=== PATIENT | female | born 1990 | race Caucasian/White ===

== ENCOUNTER 2016-07-25 06:42 | Inpatient (IN) | payer SELFPAY ==
[2016-07-25 07:11] LABS: ALL NEG? NO
[2016-07-25 07:21] LABS: METHAMPHETAMINES *POSITIVE* (NEGATIVE); OXYCODONE NEG (NEGATIVE)
[2016-07-25 07:29] LABS: LEUKOCYTES/URINE 2+ (NEGATIVE); NITRITE/URINE NEG (NEGATIVE)
--- NOTE | 2016-07-25 07:37 | EDPRACDOC ---
- General Information Chief Complaint: Dyspnea/Resp distress Stated Complaint: CP/ DIFFICULTY BREATHING Time Seen by Provider: 07/25/16 07:28 Information Source: Patient Mode Of Arrival: Car Home Medications: Home Medications Melatonin/Pyridoxine [Melatonin 3 mg Tablet] 1 tab PO QHS 08/03/15 Trazodone HCl 100 mg PO QHS PRN 08/03/15 Cyanocobalamin (Vitamin B-12) [Vitamin B-12] 1,000 mcg PO DAILY 09/03/15 Thiamine HCl [B-1] 50 mg PO DAILY 09/03/15 Carvedilol [Coreg] 3.125 mg PO BID #60 tablet 01/11/16 Ferrous Sulfate [Feosol] 325 mg PO TID 01/14/16 Aspirin (Enteric Coated) [Halfprin] 81 mg PO DAILY #90 tab 01/17/16 Potassium Chloride 20 meq PO DAILY #90 tablet.er 01/17/16 Furosemide 10 mg PO DAILY 07/25/16 Methadone HCl 77 mg PO DAILY 07/25/16 Allergies/Adverse Reactions: Allergies Allergy/AdvReac Type Severity Reaction Status Date / Time metoclopramide HCl Allergy Severe SEIZURE Verified 07/25/16 07:00 [From Reglan] - History of Present Illness HPI: CHEST PRESSURE, N/V, SOB ALL NIGHT. H/O CHF. HAS A VALVE THAT DOES NOT WORK. SUBJECTIVE FEVER LAST NIGHT. USED TO INJECT [place]. REPORTS CLEAN X 9 MONTHS. ED Past Medical History - History Reviewed Yes Nurses notes reviewed and agree except as marked - Patient Medical History Cardiac History: Reports: Congestive Heart Failure, Cardiomyopathy, Valvular Heart Disease (IVDA ENDOCARDITIS) Respiratory History: Reports: Pneumonia GI/ History: Reports: Urinary Tract Infection (h/o) Psychological History: Reports: Depression, Anxiety, Substance Use Disorder (IV NARCOTIC) Systemic History: Reports: Anemia Surgical History: Reports: Tonsillectomy/Adnoidectomy, Other (splenectomy). Denies: Hysterectomy - Family Medical History Reports: Hypertension (maternal grandpa), Diabetes (maternal grandpa), Cancer ( dad ( at age 36 of uncertain what kind of ca)). Denies: Stroke, Cardiac Disorders - Social Medical History Smoking Status: Heavy tobacco smoker (5 or more cigarettes/day or daily pipe/ cigar) Social History: Reports: Substance Use Disorder (IV NARCOTIC) EDM Review of Systems - Review of Systems ROS Negative Except as Marked: Yes All systems reviewed and were negative except as marked Constitutional: Fever Eyes: No Symptoms Reported Respiratory: Shortness of Breath Cardiovascular: Chest Pain Gastrointestinal: Nausea, Vomiting. negative: Pain Genitourinary: No Symptoms Reported Neurological: No Symptoms Reported Musculoskeletal: No Symptoms Reported Integumentary: No Symptoms Reported - Physical Exam Constitutional: Alert (Awake), No apparent distress Oriented to: Time, Person, Place Last recorded Vital Signs: Last Vital Signs Temp 97.7 F 07/25/16 06:55 Pulse 115 07/25/16 06:55 Resp 20 07/25/16 06:55 BP 100/63 07/25/16 06:55 Pulse Ox 93 07/25/16 06:55 Oxygen Pulse Oxygen Saturation 93 O2 Device Room Air Oxygen Flow Rate Fraction of Inspired Oxygen ( FIO2) - HEENT Head: Normal ( normocephalic) Eye Exam: Normal (PERRL, EOMI, Sclera white) Oropharynx: Normal (Pharynx:Moist without exudate,Gums-no swelling) Nose: No Symptoms Reported (septum midline) Neck: Normal (FROM, trachea at midline) - Respiratory/Cardiovascular Respiratory: Other ([place] B/L.) Cardiovascular: Normal (RRR without murmur, gallop or rub) - GI Auscultation: Normal (NABS) Palpation: Normal (Soft,No rebound or guarding, non distended) Tenderness: Non tender Perez's Sign: Negative - Musculoskeletal Back: Normal (Non-Tender) Extremities: Normal (Normal tone, Pulses 2+ No cyanosis or edema, FROM) - Integumentary Skin: Normal, Warm, Dry Lymphatics: Normal (no adenopathy) - Neurologic Memory Impaired: Normal Motor Function: Normal (Normal tone, Pulses 2+ No cyanosis or edema, FROM) Cranial Nerve: Normal (CN II-X11 intact sensation, strength 5/5) Cerebellar: Normal Mood Description: Normal Perception: Normal ED SOB MDM - Results Result Diagrams: 07/25/16 07:50 07/25/16 07:50 Results: Urine Test Neg (NEGATIVE) 07/25/16 07:00 Urine Opiates Screen Neg (NEGATIVE) 07/25/16 07:00 Ur Oxycodone Screen Neg (NEGATIVE) 07/25/16 07:00 Urine Methadone Screen Neg (NEGATIVE) 07/25/16 07:00 Ur Barbiturates Screen Neg (NEGATIVE) 07/25/16 07:00 Ur Tricyclics Screen Neg (NEGATIVE) 07/25/16 07:00 Ur Phencyclidine Scrn Neg (NEGATIVE) 07/25/16 07:00 Ur Amphetamines Screen Neg (NEGATIVE) 07/25/16 07:00 U Methamphetamines Scrn *positive* (NEGATIVE) H 07/25/16 07:00 Urine MDMA Screen *positive* (NEGATIVE) H 07/25/16 07:00 U Benzodiazepines Scrn Neg (NEGATIVE) 07/25/16 07:00 Urine Cocaine Screen Neg (NEGATIVE) 07/25/16 07:00 Ur THC Screen Neg (NEGATIVE) 07/25/16 07:00 Lab Results 07/25/16 07/25/16 07:00 07:00 Urine Test Neg Urine Opiates Screen Neg Ur Oxycodone Screen Neg Urine Methadone Screen Neg Ur Barbiturates Screen Neg Ur Tricyclics Screen Neg Ur Phencyclidine Scrn Neg Ur Amphetamines Screen Neg U Methamphetamines Scrn *positive* H Urine MDMA Screen *positive* H U Benzodiazepines Scrn Neg Urine Cocaine Screen Neg Ur THC Screen Neg - EKG EKG #1 EKG Time: 09:52 -: Yes EKG interpreted by me Rate: bpm: 105 [place]: Normal Rhythm: ST Block: RBBB (INCOMPLETE) Hypertrophy: RVH ST: Nonsp Comments: ABNORMAL EKG - Additional Information Additional Information: 1100: DR SMITH AWARE OF LARGE PERICARDIAL EFFUSION. HE HAS BEEN IN CONTACT WITH [facility] [place]. ECHO ORDERED. PT'S TREND OF BP IS CONSISTENTLY APPROX 100. - Departure Yes I personally saw and evaluated the patient. Disposition: Admit IP To This Hospital Final Diagnosis: Trichomoniasis, Pericardial effusion Pneumonia Qualifiers: Pneumonia type: due to unspecified organism Laterality: left Lung location: lower lobe of lung Qualified Code(s): J18.1 - Lobar pneumonia, unspecified organism UTI (urinary tract infection) Qualifiers: Urinary tract infection type: acute cystitis Hematuria presence: without hematuria Qualified Code(s): N30.00 - Acute cystitis without hematuria Referrals: None,No Provider [Primary Care Provider] - One Week Decision to Admit Time: 09:43 Decision to admit date: 07/25/16 Decision to admit: from ED - Physician Consulted Hospitalist Time Called: 09:43 Provider Called: aDnelle Denny Time Fishing [employer] W[employer] Returned Call: 09:43
[2016-07-25 07:44] LABS: WBC/URINE 20-30 (0-5)
[2016-07-25 07:46] LABS: URINE OCCULT BLOOD NEG (NEG/TRACE)
--- NOTE | 2016-07-25 08:01 | DIRPT ---
CLINICAL DATA: Shortness of breath and cough. Chest pain EXAM: CHEST 2 VIEW COMPARISON: January 14, 2016 and January 15, 2016 FINDINGS: There is focal airspace consolidation in the posterior left base region. There is mild atelectatic change in the left mid lung and right base regions. Generalized enlargement of the cardiac silhouette is stable; the configuration raises question of pericardial effusion. No adenopathy. No bone lesions. IMPRESSION: Posterior left base airspace consolidation consistent with pneumonia. Patchy atelectasis bilaterally. Stable enlargement of the cardiac silhouette. The configuration of the cardiac silhouette raises question of pericardial effusion. Electronically Signed By: Camron Parsons III, M.D. On: 07/25/2016 07:59
[2016-07-25 08:05] LABS: AUTOMATED BASOPHIL 0.1 % (0-2); AUTOMATED EOSINOPHIL 0.2 % (0-5); AUTOMATED LYMPH 26.5 % (17-44); AUTOMATED MONOCYTE 11.2 % (3-10); MPV 10.7 fL (7.4-10.4)
[2016-07-25 08:14] LABS: BLOOD UREA NITROGEN 12 MG/DL (7-17); CALCIUM 9.5 MG/DL (8.4-10.2); CALCULATED OSMOLALITY 267 MOs/Kg (270-290); CHLORIDE 101 mEq/L (98-107); CPK (TOTAL ONLY) 20 IU/L (30-134); GLUCOSE 108 MG/DL (70-99); SODIUM LEVEL 138 mEq/L (137-146)
[2016-07-25] MEDS ORDERED: ONDANSETRON HCL 4 MG/2 ML VIAL IV ONE (08:20)
[2016-07-25] MEDS ORDERED: METRONIDAZOLE 500 MG TAB PO ONE (08:22)
[2016-07-25] MEDS ORDERED: CEFTRIAXONE 1 GM in D5W 100 ML IV ONE (08:23)
[2016-07-25] MEDS ORDERED: AZITHROMYCIN 500 MG in D5W 250 ML IV ONE (08:24)
[2016-07-25] MEDS ORDERED: ALBUTEROL 0.083% 3 ML NEB NEB ONE (08:33)
[2016-07-25 08:41] LABS: CRP-QUANTITATIVE 21.6 mg/L (<10.0)
[2016-07-25 08:48] LABS: ALLEN'S TEST PASS
[2016-07-25 08:50] LABS: ABG Draw Site RRA
[2016-07-25] MEDS ORDERED: Pharmacy Review for Metformin - IV Contrast Given SCH (10:00)
--- NOTE | 2016-07-25 10:22 | DIRPT ---
CLINICAL DATA: Hypoxic EXAM: CT ANGIOGRAPHY CHEST WITH CONTRAST TECHNIQUE: Multidetector CT imaging of the chest was performed using the standard protocol during bolus administration of intravenous contrast. Multiplanar CT image reconstructions and MIPs were obtained to evaluate the vascular anatomy. CONTRAST: 80 cc Isovue 370 COMPARISON: 11/14/2012 FINDINGS: There are no filling defects in the pulmonary arterial tree to suggest acute pulmonary thromboembolism. Large pericardial effusion. Small mediastinal nodes. Small bilateral axillary nodes. The right ventricle is severely dilated. The right atrium is dilated. No pneumothorax or pleural effusion. Patchy bibasilar atelectasis versus airspace disease left greater than right. No acute rib fracture. Mild T3 compression deformity of indeterminate age. Prominence of the left adrenal gland without focal nodule. Review of the MIP images confirms the above findings. IMPRESSION: No evidence of acute pulmonary thromboembolism Large pericardial effusion Dilatation of the right atrium and right ventricle compatible with right heart dysfunction. This may be related to the pericardial effusion. Mild T3 compression of indeterminate age. Bibasilar atelectasis versus airspace disease. Electronically Signed By: Mathew Corey M.D. On: 07/25/2016 10:19
[2016-07-25] MEDS ORDERED: Albuterol/Ipratropium Neb 3 ML NEB NEB PRN (10:55)
--- NOTE | 2016-07-25 12:01 | HISTPHYS ---
- Chief Complaint Shortness of breath - History of Present Illness This is a 25-year-old IV drug abuser with a history of hepatitis-C, severe pulmonary hypertension with tricuspid regurgitation and medication noncompliance was being admitted to the hospital this morning due to shortness of breath. The patient tells me that she has not taken her medications for the past few months, mainly due to lack of insurance. She says that she has several pills of her beta-eber and Lasix that she keeps with her in case she gets sick and confused, but does not take the medication on a regular basis. She started to feel more short of breath in the last 2 or 3 days, denies any fevers, chills, or chest pain. She has had some nausea without vomiting. Denies any diarrhea, or abdominal pain. She has been taking care of and seen by specialists while an inpatient at [facility], but was told to follow up with their Cardiology and hepatology teams once she is clean so that they can start to treat her heart failure, valvular disease and other medical problems. Unfortunately, she has not stayed clean and has not followed up with them. She claims that she has not used Opana for the last 5 months, but today her urine demonstrates methamphetamines. She has a known history of pericardial effusion. She is hypotensive this morning, but she says that this is not unusual for even when she is in her normal state of health. Hospitalist group was consulted for further evaluation and admission to the hospital due to pneumonia seen on chest x-ray, as well as her hypoxia and pericardial effusion. - Medical History Cardiac History: Reports: Congestive Heart Failure, Cardiomyopathy, Valvular Heart Disease (IVDA ENDOCARDITIS) Respiratory History: Reports: Pneumonia GI/ History: Reports: Urinary Tract Infection (h/o) Systemic History: Reports: Anemia Psychological History: Reports: Depression, Anxiety, Substance Use Disorder (IV NARCOTIC) - Surgical History Reports: Tonsillectomy/Adnoidectomy, Other (splenectomy). Denies: Hysterectomy - Medictions/Allergies Allergies metoclopramide HCl [From Reglan] Allergy (Severe, Verified 07/25/16 07:00) SEIZURE Home Medications Melatonin/Pyridoxine [Melatonin 3 mg Tablet] 1 tab PO QHS 08/03/15 Trazodone HCl 100 mg PO QHS PRN 08/03/15 Cyanocobalamin (Vitamin B-12) [Vitamin B-12] 1,000 mcg PO DAILY 09/03/15 Thiamine HCl [B-1] 50 mg PO DAILY 09/03/15 Carvedilol [Coreg] 3.125 mg PO BID #60 tablet 01/11/16 Ferrous Sulfate [Feosol] 325 mg PO TID 01/14/16 Aspirin (Enteric Coated) [Halfprin] 81 mg PO DAILY #90 tab 01/17/16 Potassium Chloride 20 meq PO DAILY #90 tablet.er 01/17/16 Furosemide 10 mg PO DAILY 07/25/16 Methadone HCl 77 mg PO DAILY 07/25/16 - Family History Reports: Hypertension (maternal grandpa), Diabetes (maternal grandpa), Cancer ( dad ( at age 36 of uncertain what kind of ca)). Denies: Stroke, Cardiac Disorders - Social History Smoking Status: Heavy tobacco smoker (5 or more cigarettes/day or daily pipe/ cigar) Social History: Reports: Substance Use Disorder (IV NARCOTIC) - Review of Systems Yes All systems reviewed and were negative except as marked (And as mentioned in the history of present illness above.) - Physical Exam Vital Signs: Initial Vitals Temperature 97.7 F 07/25/16 06:55 Pulse Rate 115 07/25/16 06:55 Respiratory Rate 20 07/25/16 06:55 Blood Pressure 100/63 07/25/16 06:55 Pulse Oxygen Saturation 93 07/25/16 06:55 Constitutional: No apparent distress, Alert Oriented to: Time, Person, Place Exam: Thin woman appearing at least 10 years older than her stated age. She is not a very good historian, her boyfriend at the bedside provides most of the history and explanation. - HEENT Head: Normal (normocephalic,atraumatic, trachea midline) Eye: Normal (EOMI, Sclera white) Oropharynx: Normal (moist) Nose: No Symptoms Reported (without discharge or bleeding) Respiratory: Diminished, Rales, Rhonchi. negative: Retractions, Stridor, Tachypnea, Wheezes Cardiovascular: Tachycardia - GI Palpation: Normal (soft, non distended and nontender) - Musculoskeletal Extremities: Normal (normal tone, no cyanosis or edema) - Integumentary Skin: Normal (no rashes or lesions) - Focused CV Perfusion Exam Vital Signs: Last Vital Signs Temp 97.7 F 07/25/16 06:55 Pulse 105 07/25/16 11:32 Resp 16 07/25/16 11:32 BP 88/55 L 07/25/16 11:32 Pulse Ox 95 07/25/16 11:32 - Lab Results Laboratory Tests 07/25/16 07/25/16 07/25/16 07:00 07:50 07:50 WBC 16.6 H Hgb 14.5 Hct 44.1 Plt Count 176 pH pCO2 pO2 Potassium 4.9 BUN 12 Creatinine 0.50 L AST 158 H ALT 175 H Alkaline Phosphatase 561 H Total Creatine Kinase 20 L Troponin I < 0.01 C-Reactive Prot, Quant 21.6 H [id number] Pept 5630 H Ur Oxycodone Screen Neg U Methamphetamines Scrn *positive* H Urine MDMA Screen *positive* H 07/25/16 08:45 WBC Hgb Hct Plt Count pH 7.400 pCO2 46.0 H pO2 54.0 L Potassium BUN Creatinine AST ALT Alkaline Phosphatase Total Creatine Kinase Troponin I C-Reactive Prot, Quant [id number] Pept Ur Oxycodone Screen U Methamphetamines Scrn Urine MDMA Screen - Diagnostic Findings CT of the chest: IMPRESSION: No evidence of acute pulmonary thromboembolism Large pericardial effusion Dilatation of the right atrium and right ventricle compatible with right heart dysfunction. This may be related to the pericardial effusion. Mild T3 compression of indeterminate age. Bibasilar atelectasis versus airspace disease. - Assessment (1) Pneumonia J18.9 - PNEUMONIA, UNSPECIFIED ORGANISM Acute Qualifiers: Pneumonia type: due to unspecified organism Aspiration pneumonia type: A Laterality: left Lung location: lower lobe of lung Qualified Code(s): J18.1 - Lobar pneumonia, unspecified organism This is a community-acquired pneumonia, but will cover broadly including MRSA due to the patient's history of IV drug abuse. Treat empirically today with IV Zosyn and vancomycin. Will obtain sputum and blood cultures. Repeat chest x- ray in the morning. Respiratory therapy has been consulted, will keep supplemental oxygen will be provided as needed, as well as incentive spirometry and flutter valve. (2) Pericardial effusion I31.3 - PERICARDIAL EFFUSION (NONINFLAMMATORY) Acute Patient is a known history of pericardial effusion, likely chronic. I discussed the situation with Dr. Mandeep Sherman of Cardiology, who will see the patient in consultation. This is look interpreted as a large effusion on CT scan this afternoon, however these are often over called given the access on which CT scan is evaluating the pericardial space. Stat echocardiogram will be performed, interpreted by Dr. Sherman. We feel that this is less likely to be an acute situation which is causing any heart strain, tamponade or hemodynamic instability. More likely to be a chronic effusion related to her heart failure. (3) CHF, acute on chronic I50.9 - HEART FAILURE, UNSPECIFIED Acute Qualifiers: Congestive heart failure type: unspecified congestive heart failure type Qualified Code(s): I50.9 - Heart failure, unspecified Patient does carry a diagnosis of CHF, it is not clear to me that she is in heart failure. Her BNP is elevated, but not as much as it was back in January. She does have severe pulmonary hypertension and tricuspid regurgitation. Will continue her on the beta-eber and oral diuretic she was supposed to be on at home, appreciate Cardiology input regarding this issue as well. (4) Respiratory insufficiency R06.89 - OTHER ABNORMALITIES OF BREATHING Acute Likely due to combination of her CHF, pulmonary hypertension, and community-acquired pneumonia. Treating as above. (5) Transaminitis R74.0 - NONSPEC ELEV OF LEVELS OF TRANSAMNS & LACTIC ACID DEHYDRGNSE Acute Patient with transaminitis, she does have a history of chronic hepatitis-C infection. Currently not on treatment due to her medication noncompliance and IV drug use. (6) Hepatitis C B19.20 - UNSPECIFIED VIRAL HEPATITIS C WITHOUT HEPATIC COMA Chronic Qualifiers: Viral hepatitis chronicity: chronic Hepatic coma status: H See transaminitis above. (7) Intravenous drug abuse F19.10 - OTHER PSYCHOACTIVE SUBSTANCE ABUSE, UNCOMPLICATED Chronic Patient claims to be clean for the last several months, but she does have methamphetamines in her system today. I informed her in no uncertain terms that I am worried about her life expectancy if she continues to use. (8) Pulmonary arterial hypertension I27.2 - OTHER SECONDARY PULMONARY HYPERTENSION Chronic Severe pulmonary hypertension with PASP of 72 mm Hg. Patient was advised to follow up with Pulmonary hypertension Clinic at [facility]. Continue Lasix and other treatments as above. - Plan In summary this patient is acutely and critically ill. The patient requires treatment of vital organ failure and measures to prevent further life- threatening deterioration of the above conditions. I personally reviewed and ordered lab testing, as well as imaging. I reviewed old medical records from previous hospitalizations as available, and spent the time mentioned below in critical care of this patient including counseling and coordination of care. Case Care Discussed with: Patient, Family, Nursing Staff Total Time: 95 Critical Care: Yes Couseling Time (>50% in counseling/coordination): Yes
--- NOTE | 2016-07-25 12:30 | PCM.CARDCO ---
Consultation Date: 07/25/16 Requesting Physician: Marv Mendez Clinical Psychologist Private Practice: [facility] Consult Reason: Other - History of Present Illness She is a 25-year-old woman with a history of IV drug abuse severe pulmonary artery hypertension right ventricular dilation and dysfunction severe tricuspid regurgitation and chronic pericardial effusion. She is evaluated 1 year ago at [facility] according to her significant other who said she was advised to have valve replacement but has had no follow-up. She presents today which shortness of breath CT of the chest suggested large pericardial effusion. Echo at the bedside shows an effusion that is predominantly posteriorly I would call at moderate and does not have markers of pericardial tamponade. On CT the fluid is not transit date and appears to be chronic I could not define if the pericardium was thickened. There is no stranding. She has findings both right ventricular pressure and volume overload dilated hypokinetic right ventricle severe tricuspid regurgitation and severe pulmonary artery hypertension. She relates shortness of breath even with ADLs and marked exercise intolerance. She has not had syncope. Chief Complaint: Pericardial effusion - Past Medical and Surgical History Cardiac History: Reports: Congestive Heart Failure, Cardiomyopathy, Valvular Heart Disease (IVDA ENDOCARDITIS) Respiratory History: Reports: Pneumonia GI/ History: Reports: Urinary Tract Infection (h/o) Systemic History: Reports: Anemia Psychological History: Reports: Depression, Anxiety, Substance Use Disorder (IV NARCOTIC) Past Surgical History: Reports: Tonsillectomy/Adnoidectomy, Other (splenectomy) . Denies: Hysterectomy Allergies metoclopramide HCl [From Reglan] Allergy (Severe, Verified 07/25/16 07:00) SEIZURE Home Medications Melatonin/Pyridoxine [Melatonin 3 mg Tablet] 1 tab PO QHS 08/03/15 Trazodone HCl 100 mg PO QHS PRN 08/03/15 Cyanocobalamin (Vitamin B-12) [Vitamin B-12] 1,000 mcg PO DAILY 09/03/15 Thiamine HCl [B-1] 50 mg PO DAILY 09/03/15 Carvedilol [Coreg] 3.125 mg PO BID #60 tablet 01/11/16 Ferrous Sulfate [Feosol] 325 mg PO TID 01/14/16 Aspirin (Enteric Coated) [Halfprin] 81 mg PO DAILY #90 tab 01/17/16 Potassium Chloride 20 meq PO DAILY #90 tablet.er 01/17/16 Furosemide 10 mg PO DAILY 07/25/16 Methadone HCl 77 mg PO DAILY 07/25/16 - Social History Travel Outside of [place] in the Last 3 Months?: No Smoking Status: Heavy tobacco smoker (5 or more cigarettes/day or daily pipe/ cigar) Social History: Reports: Substance Use Disorder (IV NARCOTIC) - Family History Reports: Hypertension (maternal grandpa), Diabetes (maternal grandpa), Cancer ( dad ( at age 36 of uncertain what kind of ca)). Denies: Stroke, Cardiac Disorders - Review of Systems Constitutional: Fever, Weakness - Respiratory Shortness of Breath - Physical Exam Constitutional: No apparent distress, Alert, Other (Small stature she looks chronically ill she is tachypneic tachycardic and pain) Oriented to: Time, Person, Place Exam: Last Vital Signs Temp 97.7 F 07/25/16 06:55 Pulse 106 07/25/16 12:13 Resp 14 07/25/16 12:13 BP 105/63 07/25/16 12:13 Pulse Ox 95 07/25/16 12:13 Intake & Output 07/24/16 07/25/16 07/25/16 23:59 07:59 15:59 Intake Total 350 Balance 350 - HEENT Head: Normal (Marked neck vein distention with a patent jugular reflux to the neck veins are pulsatile. No bruit or thyromegaly) Eye: Normal (EOMI, Sclera white) Oropharynx: Normal (moist) Nose: No Symptoms Reported (without discharge or bleeding) - Respiratory/Cardiovascular Respiratory: Diminished, Rales, Rhonchi. negative: Retractions, Stridor, Tachypnea, Wheezes Cardiovascular: Systolic murmur (Regular rhythm P2 is accentuated grade 2-3 of 6 holosystolic murmur tricuspid regurgitation there is no respiratory fluctuation) - GI Palpation: Normal (soft, non distended and nontender) - Musculoskeletal Extremities: Normal (normal tone, no cyanosis or edema), Femoral Pulse, Pedal Pulse, Radial Pulse. negative: Calf Tenderness, Clubbing, Cyanosis, Edema, Pedal Edema - Integumentary Skin: Normal (no rashes or lesions) - Neurologic Memory Impaired: Normal Cerebellar: Normal Mood Description: Normal Perception: Normal - Lab Results Laboratory Tests 07/25/16 07/25/16 07/25/16 07:00 07:00 07:50 WBC Hgb Plt Count Absolute Neuts (auto) Potassium 4.9 Estimated GFR (MDRD) > 60 Troponin I < 0.01 Bzd-D-Ldkwitzsemv Pept 5630 H Ur Leukocyte Esterase 2+ H Urine WBC 20-30 H Urine Bacteria 2+ H U Methamphetamines Scrn *positive* H Urine MDMA Screen *positive* H 07/25/16 07:50 WBC 16.6 H Hgb 14.5 Plt Count 176 Absolute Neuts (auto) 10.29 H Potassium Estimated GFR (MDRD) Troponin I Jqa-Y-Cincjrgktzv Pept Ur Leukocyte Esterase Urine WBC Urine Bacteria U Methamphetamines Scrn Urine MDMA Screen - Assessment/Plan (1) Pericardial effusion I31.3 - PERICARDIAL EFFUSION (NONINFLAMMATORY) Chronic Present on Admission: Yes Comment: Her pericardial effusion is chronic as evidence by the Hounsfield units on CT scan, clinically she does not have tamponade I do not feel that it severe at this time I would not advise any urgent interventions for percutaneous or surgical drainage. Ideally she should have a pericardial window performed however her continues substance abuse and noncompliance have interfered with her care and she has had no follow-up after seeing CT surgery year ago. (2) Tricuspid regurgitation I07.1 - RHEUMATIC TRICUSPID INSUFFICIENCY Chronic Present on Admission: Yes nonrheumatic I36.1 - Nonrheumatic tricuspid (valve) insufficiency Comment: Severe, clinically I suspect is related to IV drug abuse either sequela of endocarditis or secondary to right heart failure due to her severe pulmonary hypertension. She could clinically be considered for intervention either even percutaneous however she would be at high risk of endocarditis with her ongoing substance abuse. (3) Enlarged RV (right ventricle) I51.7 - CARDIOMEGALY Chronic Present on Admission: Yes Comment: She has evidence of both right ventricular pressure and volume overload as well as moderate to severe RV dysfunction which is chronic. Clinically she is compensated at this time. With her blood pressure being low I would not diurese her. (4) Pulmonary arterial hypertension I27.2 - OTHER SECONDARY PULMONARY HYPERTENSION Chronic Present on Admission: Yes Comment: Severe placing her at high risk of complications including intractable right heart failure. Case Care Discussed with: Patient
[2016-07-25] MEDS: PIPERACILLIN AND TAZOBACTAM 4.5 GM in D5W 100 ML IV SCH ×2 (12:35→17:20)
--- NOTE | 2016-07-25 13:20 | CAPUECHO ---
INDICATION: LARGE PERICARDIAL EFFUSION HEIGHT: 147.3 cm (4 ft 10.0 in) WEIGHT: 49.9 kg (110.0 lbs) BP: 86/54 BSA: 1.173332 m MEASUREMENTS 2D RVIDd: 5.9* cm LVOT Diam: 1.7 cm EF Biplane: 66.29 % LAESV MOD A4C: 9.3 ml LAESV MOD A2C: 32.2 ml LAESV Index (A-L): 14.24 ml/m M-MODE IVSd: 0.9 cm LVIDd: 3.3 cm LVPWd: 0.8 cm LVIDs: 2.1 cm EF(Teich): 70 % Ao Diam: 2.8 cm LA Diam: 4.3 cm AV Cusp: 1.3 cm DOPPLER MV E Krish: 0.72 m/s MV A Krish: 0.75 m/s MV PHT: 23.16 ms MVA By PHT: 9.50 cm LVOT Vmax: 0.83 m/s AV Vmax: 0.99 m/s HOMER Vmax, Pt: 2.01 cm TR Vmax: 3.34 m/s TR maxP mmHg RVSP: 90.38 mmHg FINDINGS ------- Procedure:2D images, m-mode, color and spectral Doppler were obtained and reviewed. ECG rhythm:Sinus rhythm. Study quality:This was a technically adequate study. Left Ventricle:The left ventricular size is normal. Left ventricular wall thickness is normal. T here is normal global left ventricular contractility. Overall left ventricular systolic function i s normal with, an EF between 60 - 65 %. Overall left ventricular systolic function is normal with, an EF between 60 - 70 %. There is septal flattening in diastole and systole which is consistent w ith right ventricular pressure and volume overload. The diastolic filling pattern indicates impair ed relaxation. Right Ventricle:The right ventricle is severely enlarged. The right ventricular systolic function is severely impaired. Left Atrium:The left atrium is mildly dilated. Right Atrium:The right atrium is normal in size and function. The right atrium is mildly enlarged. Aortic Valve:The aortic valve is trileaflet and appears structurally normal. Mitral Valve:Normal appearing mitral valve. No mitral regurgitation. Tricuspid Valve:The tricuspid valve appears structurally normal. Severe tricuspid regurgitation pr esent. There is no evidence of pulmonary hypertension. Pulmonic Valve:The pulmonic valve was not well visualized. Moderate pulmonic regurgitation. Aorta:The aortic root, ascending aorta and aortic arch appear normal. IVC:The inferior vena cava is mildly dilated. Pericardium:The pericardium appears to be thickened. there is a small to moderate anterior and mod erate posterior pericardial effusion CONCLUSIONS 1. There is normal global left ventricular contractility. 2. Overall left ventricular systolic function is normal with, an EF between 60 - 70 %. 3. There is septal flattening in diastole and systole which is consistent with right ventricular pre ssure and volume overload. 4. The right ventricle is severely enlarged. 5. The right ventricular systolic function is severely impaired. 6. The left atrium is mildly dilated. 7. The right atrium is mildly enlarged. 8. Severe tricuspid regurgitation present. 9. There is no evidence of pulmonary hypertension. 10. Moderate pulmonic regurgitation. 11. there is a small to moderate anterior and moderate posterior pericardial effusion Electronically Signed By: Mandeep Sherman MD, FACC Electronically Signed On: 13:15:19
[2016-07-25] MEDS: IBUPROFEN 600 MG TAB PO PRN ×2 (14:32→22:13)
[2016-07-25] MEDS: POTASSIUM CHLORIDE 20 MEQ TAB PO SCH (14:33)
[2016-07-25] MEDS ORDERED: Vaccine Screening Complete SCH (16:00)
[2016-07-25] MEDS: ENOXAPARIN 40 MG/0.4 ML PFS SQ SCH (17:20)
[2016-07-25] MEDS ORDERED: PYRIDOXINE PO SCH (21:00)
[2016-07-25] MEDS ORDERED: MELATONIN PO SCH (21:00)
[2016-07-25] MEDS: TRAZODONE 100 MG TAB PO PRN (22:13)
[2016-07-26] MEDS: PIPERACILLIN AND TAZOBACTAM 4.5 GM in D5W 100 ML IV SCH ×5 (00:50→23:45)
[2016-07-26] MEDS ORDERED: NS 500 ML IV ONE (01:17)
[2016-07-26] MEDS ORDERED: ACETAMINOPHEN 325 MG SUPP PR PRN (01:18)
[2016-07-26] MEDS ORDERED: BISACODYL 5 MG TAB PO PRN (01:18)
[2016-07-26] MEDS ORDERED: GUAIFEN 100 MG-DEXTROMETH 10 MG PER 5 ML PO PRN (01:18)
[2016-07-26] MEDS ORDERED: SIMETHICONE 80 MG TAB PO PRN (01:18)
[2016-07-26] MEDS ORDERED: BENZONATATE 100 MG PERLES PO PRN (01:18)
[2016-07-26] MEDS ORDERED: SENNA CONCENTRATE TAB PO PRN (01:18)
[2016-07-26 03:12] LABS: MPV 10.1 fL (7.4-10.4)
[2016-07-26 03:28] LABS: BLOOD UREA NITROGEN 15 MG/DL (7-17); CALC CORRECTED 9.3 MG/DL (8.4-10.2); CALCIUM 8.4 MG/DL (8.4-10.2); CALCULATED OSMOLALITY 260 MOs/Kg (270-290); CHLORIDE 97 mEq/L (98-107); GLUCOSE 115 MG/DL (70-99); SODIUM LEVEL 134 mEq/L (137-146); TOTAL PROTEIN 6.3 G/DL (6.3-8.2)
--- NOTE | 2016-07-26 07:56 | PCM.CARD ---
- Subjective Reason for visit: For chronic pericardial effusion Current Assessment: No New Symptoms (She feels improved today without shortness of breath cough for chest discomfort). negative: Cough, Chest Pain, Nausea, Palpitations, Sputum, Vomiting Vital Signs: Last Vital Signs Temp 97.6 F 07/26/16 07:39 Pulse 100 07/26/16 07:39 Resp 18 07/26/16 07:39 BP 85/54 L 07/26/16 07:39 Pulse Ox 93 07/26/16 07:39 Vital Signs Temp 97.6 F 07/26/16 07:39 Pulse 100 07/26/16 07:39 Resp 18 07/26/16 07:39 BP 85/54 L 07/26/16 07:39 Pulse Ox 93 07/26/16 07:39 Intake & Output 07/24/16 07/25/16 07/26/16 23:59 23:59 23:59 Intake Total 915 1515 Output Total 800 500 Balance 115 1015 Patient's weight 111 lb 11.2 oz 112 lb 6 oz Intake: IV Fluids 675 1155 Left Outer Forearm 325 1155 Rocephin 1 gm In D5w 100 100 ml @ 200 mls/hr IV NOW ONE Rx#:[id number] Zithromax 500 mg In D5w 250 250 ml @ 250 mls/hr IV ONCE ONE Rx#:[id number] Zosyn 4.5 gm In D5w 100 0 ml @ 200 mls/hr IV Q6H KAMALJIT Rx#:[id number] Oral 240 360 Output: Urine 800 500 Other: Elimination Method Bedside Commode Bedside Commode Urine Color Yellow Yellow Dark Dark Wt Change in KG 0.771 kg gained 0.306 kg gained Weight Change from 1.7 lb(s) gained 10.8 oz gained Previous Weight Weight (Calculated 50.666 50.972 Kilograms) Respiratory: Diminished. negative: Rales, Wheezes Jugular Vein Distention: Moderate Pulse Rhythm: Regular EKG Rhythm: Sinus Tachycardia EKG Ectopy: negative: Runs >10 beats Heart Sounds: Murmur (2-3 of 6 TR left sternal border She has no edema today), Distant. negative: S1 & S2 (Accentuated P2) Lab/DI Results Reviewed: Laboratory Tests 07/25/16 07/26/16 07/26/16 08:45 03:00 03:00 WBC 16.9 H Hgb 11.8 L D pH 7.400 pCO2 46.0 H pO2 54.0 L Potassium 3.7 Estimated GFR (MDRD) > 60 AST 98 H ALT 128 H Alkaline Phosphatase 396 H - Assessment/Plan (1) Pericardial effusion Chronic I31.3 - PERICARDIAL EFFUSION (NONINFLAMMATORY) Present on Admission: Yes Comment/Plan: I have asked her to see me in the office in follow-up after discharge, if compliant she should be referred to [facility] for [facility] artery hypertension tricuspid regurgitation and a pericardial effusion with consideration of percutaneous or surgical drainage and window. At This time if she continues to be noncompliant and substance abuse I would not recommend these procedures. (2) Tricuspid regurgitation Chronic I07.1 - RHEUMATIC TRICUSPID INSUFFICIENCY Present on Admission: Yes nonrheumatic I36.1 - Nonrheumatic tricuspid (valve) insufficiency Comment/Plan: See above, requires evaluation treatment of pulmonary hypertension and potentially is a candidate for tricuspid valve intervention either annuloplasty ring her percutaneous tricuspid valve replacement if she does not respond to medical treatment (3) Enlarged RV (right ventricle) Chronic I51.7 - CARDIOMEGALY Present on Admission: Yes Comment/Plan: Secondary to pulmonary hypertension severe (4) Pulmonary arterial hypertension Chronic I27.2 - OTHER SECONDARY PULMONARY HYPERTENSION Present on Admission: Yes Comment/Plan: Severe in the setting of IV drug abuse, I will request records from [facility] and I am somewhat surprised that she was not offered medical treatment. If compliant she needs refer to multi disciplinary program for pulmonary hypertension and her right heart dysfunction and valvular regurgitation. I would not restart a beta-eber in the absence of atrial arrhythmias
[2016-07-26 08:18] LABS: MDMA* NEG (NEGATIVE)
[2016-07-26] MEDS: METHADONE 10 MG TAB PO SCH (08:52)
[2016-07-26] MEDS ORDERED: FUROSEMIDE 20 MG TAB PO SCH (09:00)
[2016-07-26] MEDS ORDERED: Non-Formulary Medication ITEM (Potassium Chloride [Potassium Chloride] 20 MEQ) PO SCH (09:00)
[2016-07-26] MEDS ORDERED: METHADONE HCL PO SCH (09:00)
--- NOTE | 2016-07-26 09:17 | GENMEDPROG ---
Chief Complaint: Shortness of breath Subjective Note: Resting comfortably this morning. Denies chest pain or shortness of breath. Notes Reviewed: Yes Events from last night noted and discussed with Clinical Staff Current Medication List: Reviewed Currently: Reports: Cough, Wheezing, ALBRIGHT, SOB DVT Prophylaxis: Yes - Physical Examination Vital Signs and I&O: Last Vital Signs Temp 97.6 F 07/26/16 07:39 Pulse 100 07/26/16 07:39 Resp 18 07/26/16 07:39 BP 85/54 L 07/26/16 07:39 Pulse Ox 93 07/26/16 07:39 Oxygen Pulse Oxygen Saturation 93 O2 Device Nasal Cannula Oxygen Flow Rate 2 Fraction of Inspired Oxygen ( FIO2) Intake & Output 07/24/16 07/25/16 07/26/16 07/27/16 06:59 06:59 06:59 06:59 Intake Total 2430 Output Total 1300 300 Balance 1130 -300 Patient's weight 50.972 kg General: Alert, Oriented x3, Cooperative, Mild distress HEENT: EOMI (Sclera white) Neck: Normal Trachea alignment, Normal inspection Respiratory: Diminished, Rales, Rhonchi. negative: Retractions, Stridor, Tachypnea, Wheezes Cardiovascular: Regular rate, No Gallops,Rubs/Murmurs GI: Normal bowel sounds, Soft, Non tender (non distended) Extremities/Musculoskeletal: Other (Normal Tone). negative: Edema, Cyanosis Skin: No rashes, No significant lesion Psych/Mental Status: Anxious Lab/DI/Studies Reviewed: Laboratory Tests 07/25/16 07/26/16 07/26/16 07:50 03:00 03:00 WBC 16.6 H 16.9 H Hgb 11.8 L D Potassium 3.7 BUN 15 Creatinine 0.60 - Assessment (1) Pneumonia Acute J18.9 - PNEUMONIA, UNSPECIFIED ORGANISM Qualifiers: Pneumonia type: due to unspecified organism Aspiration pneumonia type: A Laterality: left Lung location: lower lobe of lung Qualified Code(s): J18.1 - Lobar pneumonia, unspecified organism Comment/Plan: This is a community-acquired pneumonia, but will cover broadly including MRSA due to the patient's history of IV drug abuse. Treat empirically today with IV Zosyn and vancomycin. Will obtain sputum and blood cultures. Respiratory therapy has been consulted, will keep supplemental oxygen will be provided as needed, as well as incentive spirometry and flutter valve. (2) Pericardial effusion Chronic I31.3 - PERICARDIAL EFFUSION (NONINFLAMMATORY) Comment/Plan: Patient has a known history of pericardial effusion, likely chronic. I discussed the situation with Dr. Mandeep Sherman of Cardiology, who was kind enough to see the patient in consultation. Patient had a stat echocardiogram yesterday in the emergency department interpreted by Dr. Sherman, it is moderate in size, very chronic appearing. Etiology is unclear. No evidence of tamponade. In the long-term, she may benefit from pericardial window. (3) CHF, acute on chronic Acute I50.9 - HEART FAILURE, UNSPECIFIED Qualifiers: Congestive heart failure type: unspecified congestive heart failure type Qualified Code(s): I50.9 - Heart failure, unspecified Comment/Plan: Patient does carry a diagnosis of CHF, it is not clear to me that she is in heart failure. Her BNP is elevated, but not as much as it was back in January. She does have severe pulmonary hypertension and tricuspid regurgitation. Beta-eber oral diuretic due to relative hypotension. (4) Respiratory insufficiency Acute R06.89 - OTHER ABNORMALITIES OF BREATHING Comment/Plan: Likely due to combination of her CHF, pulmonary hypertension, and community-acquired pneumonia. Treating as above. (5) Transaminitis Acute R74.0 - NONSPEC ELEV OF LEVELS OF TRANSAMNS & LACTIC ACID DEHYDRGNSE Comment/Plan: Patient with transaminitis, she does have a history of chronic hepatitis-C infection. Currently not on treatment due to her medication noncompliance and IV drug use. (6) Hepatitis C Chronic B19.20 - UNSPECIFIED VIRAL HEPATITIS C WITHOUT HEPATIC COMA Qualifiers: Viral hepatitis chronicity: chronic Hepatic coma status: H Comment/Plan: See transaminitis above. (7) Intravenous drug abuse Chronic F19.10 - OTHER PSYCHOACTIVE SUBSTANCE ABUSE, UNCOMPLICATED Comment/ Plan: Patient claims to be clean for the last several months, but she does have methamphetamines in her system today. I informed her in no uncertain terms that I am worried about her life expectancy if she continues to use. (8) Pulmonary arterial hypertension Chronic I27.2 - OTHER SECONDARY PULMONARY HYPERTENSION Comment/Plan: Severe pulmonary hypertension with PASP of 72 mm Hg. Patient was previously advised to follow up with Pulmonary hypertension Clinic at [facility]. She certainly will need follow-up at a tertiary care center. - Plan Continue present care as above for her community-acquired pneumonia. He is still hypoxic, wean oxygen as tolerated. Had a [address] Sherman this morning regarding this patient's care. She has severe pulmonary hypertension, which may well be her primary problem leading to her tricuspid regurgitation and severely dilated right ventricle. He would like to have the patient follow up with him in his office when she is stable for discharge, and if she does not need follow-up he will coordinate referrals to Interventional Cardiology and Pulmonary and either [place] or [facility].
[2016-07-26] MEDS: POTASSIUM CHLORIDE 20 MEQ TAB PO SCH (12:26)
[2016-07-26] MEDS: THIAMINE 100 MG TAB PO SCH (12:26)
[2016-07-26] MEDS: PROMETHAZINE 25 MG/ML VIAL IV PRN (14:56)
[2016-07-26] MEDS: IBUPROFEN 600 MG TAB PO PRN ×2 (15:00→15:01)
[2016-07-26] MEDS: ENOXAPARIN 40 MG/0.4 ML PFS SQ SCH (17:58)
[2016-07-27] MEDS: ACETAMINOPHEN 325 MG/TAB TABLET PO PRN ×2 (03:18→18:21)
[2016-07-27] MEDS: PROMETHAZINE 25 MG/ML VIAL IV PRN ×2 (03:28→18:22)
[2016-07-27 04:16] LABS: MPV 10.5 fL (7.4-10.4)
[2016-07-27 04:23] LABS: BLOOD UREA NITROGEN 10 MG/DL (7-17); CALC CORRECTED 9.6 MG/DL (8.4-10.2); CALCIUM 8.8 MG/DL (8.4-10.2); CALCULATED OSMOLALITY 256 MOs/Kg (270-290); CHLORIDE 98 mEq/L (98-107); GLUCOSE 111 MG/DL (70-99); SODIUM LEVEL 133 mEq/L (137-146); TOTAL PROTEIN 6.6 G/DL (6.3-8.2)
[2016-07-27] MEDS: PIPERACILLIN AND TAZOBACTAM 4.5 GM in D5W 100 ML IV SCH ×3 (05:18→17:13)
[2016-07-27] MEDS: METHADONE 10 MG TAB PO SCH (09:14)
--- NOTE | 2016-07-27 10:47 | PCM.CARD ---
- Subjective Reason for visit: For chronic pericardial effusion pulmonary artery hypertension and tricuspid regurgitation Current Assessment: No New Symptoms (She is feeling better). negative: Chest Pain, Nausea, Palpitations, Shortness of Breath, Syncope, Vomiting Vital Signs: Last Vital Signs Temp 97.6 F 07/27/16 07:42 Pulse 114 07/27/16 10:35 Resp 18 07/27/16 07:42 BP 99/68 07/27/16 07:44 Pulse Ox 95 07/27/16 08:00 Selected Entries 07/26/16 07/26/16 07/26/16 00:41 07:39 09:21 Blood Pressure 74/50 L 85/54 L 95/66 L 07/26/16 07/27/16 07/27/16 11:35 05:18 07:42 Blood Pressure 101/66 101/61 81/60 L 07/27/16 07:44 Blood Pressure 99/68 Respiratory: Normal - CTA Jugular Vein Distention: Mild Pulse Rhythm: Regular EKG Rhythm: Sinus Tachycardia EKG Ectopy: negative: Runs >10 beats Heart Sounds: Murmur (1-2 of 6 TR left lower sternal border she has no edema), Distant. negative: S1 & S2 (P2 accentuated) Lab/DI Results Reviewed: Laboratory Tests 07/25/16 07/26/16 07/27/16 07:50 03:00 03:55 WBC 16.6 H 16.9 H 18.4 H Hgb 12.4 Potassium Creatinine 07/27/16 03:55 WBC Hgb Potassium 4.0 Creatinine 0.50 L - Assessment/Plan (1) Pericardial effusion Chronic I31.3 - PERICARDIAL EFFUSION (NONINFLAMMATORY) Present on Admission: Yes Comment/Plan: Chronic moderate at this time I would not advise surgical or percutaneous drainage especially with noncompliance. (2) Tricuspid regurgitation Chronic I07.1 - RHEUMATIC TRICUSPID INSUFFICIENCY Present on Admission: Yes nonrheumatic I36.1 - Nonrheumatic tricuspid (valve) insufficiency Comment/Plan: Severe clinically in the setting of pulmonary artery hypertension if she proves compliant referred to a multi disciplinary program for pulmonary artery hypertension is structural heart disease for drug therapy as well as consideration of tricuspid valve procedures even potentially percutaneous valve placement. (3) Enlarged RV (right ventricle) Chronic I51.7 - CARDIOMEGALY Present on Admission: Yes (4) Pulmonary arterial hypertension Chronic I27.2 - OTHER SECONDARY PULMONARY HYPERTENSION Present on Admission: Yes Comment/Plan: Severe associated IV drug abuse if compliant would benefit from referral to a multi disciplinary program.
[2016-07-27] MEDS: THIAMINE 100 MG TAB PO SCH (12:58)
[2016-07-27] MEDS: POTASSIUM CHLORIDE 20 MEQ TAB PO SCH ×2 (12:58→15:32)
[2016-07-27] MEDS: ENOXAPARIN 40 MG/0.4 ML PFS SQ SCH (14:05)
--- NOTE | 2016-07-27 15:29 | GENMEDPROG ---
Chief Complaint: States that she is less short of breath today. Notes Reviewed: Yes Events from last night noted and discussed with Clinical Staff Current Medication List: Reviewed Currently: Reports: Cough, Wheezing, ALBRIGHT, SOB DVT Prophylaxis: Yes - Physical Examination Vital Signs and I&O: Last Vital Signs Temp 98 F 07/27/16 10:54 Pulse 107 07/27/16 12:10 Resp 18 07/27/16 10:54 BP 96/64 L 07/27/16 10:54 Pulse Ox 95 07/27/16 10:54 Oxygen Pulse Oxygen Saturation 95 O2 Device Nasal Cannula Oxygen Flow Rate 2 Fraction of Inspired Oxygen ( FIO2) Intake & Output 07/24/16 07/25/16 07/26/16 07/27/16 23:59 23:59 23:59 23:59 Intake Total 915 1995 1642 Output Total 800 1600 1225 Balance 115 395 417 Patient's weight 50.666 kg 50.972 kg 50.848 kg General: Alert, Oriented x3, No acute distress, Well appearing, Well nourished HEENT: Normal (Normocephalic, atraumatic;EOMI.Sclera white, Nares patent, without discharge or bleeding. No oropharyngeal lesions or erythema. Mucous membranes are dry.) Neck: Non-tender, Full range of motion, Normal Trachea alignment, Normal inspection (No cervical lymphadenopathy. No supraclavicular lymphadenopathy.), No Masses palpable, Supple Lymphatics: Normal (No lymph node swelling or pain.) Respiratory: Normal - CTA Cardiovascular: Regular rate and rhythm (No bradycardia or tachycardia), Normal S1, Normal S2, Murmurs (2/6 hsm), Good Pedal Pulses (DP pulses 2+ bilaterally) GI: Normal bowel sounds (normal active sounds), Soft (non-distended), Non tender , No hepatospenomegaly, No masses Extremities/Musculoskeletal: Normal pulses (DP pulses 2+ bilaterally) Skin: Warm,Dry and Intact, No rashes, No significant lesion Neurological: Strength at 5/5 X4 ext (Motor 5/5 throughout.), Normal tone, Cranial nerves 3-12 NL ( 2-12 grossly intact.) Psych/Mental Status: Appropriate, Normal Affect Lab/DI/Studies Reviewed: 07/27/16 03:55 07/27/16 03:55 Laboratory Results - last 24 hr 07/26/16 07/27/16 07/27/16 23:15 03:55 03:55 WBC 18.4 H RBC 4.28 Hgb 12.4 Hct 37.5 MCV 88 MCH 29.0 MCHC 33.1 RDW 15.6 H Plt Count 149 MPV 10.5 H Sodium 133 L Potassium 4.0 Chloride 98 Carbon Dioxide 27 Anion Gap 12 BUN 10 Creatinine 0.50 L Estimated GFR (MDRD) > 60 Glucose 111 H Calculated Osmolality 256 L Calcium 8.8 Corrected Calcium 9.6 Total Bilirubin 1.5 H AST 96 H ALT 122 H Alkaline Phosphatase 377 H Total Protein 6.6 Albumin 3.2 L Vancomycin Trough 17.5 - Assessment (1) Pneumonia Acute J18.9 - PNEUMONIA, UNSPECIFIED ORGANISM Qualifiers: Pneumonia type: due to unspecified organism Aspiration pneumonia type: A Laterality: bilateral Lung location: lower lobe of lung Qualified Code(s): J18.9 - Pneumonia, unspecified organism Comment/Plan: This is a community-acquired pneumonia, but will cover broadly including MRSA due to the patient's history of IV drug abuse. Treat empirically today with IV Zosyn, levaquin, and vancomycin. Will obtain sputum and blood cultures. Respiratory therapy has been consulted, will keep supplemental oxygen will be provided as needed, as well as incentive spirometry and flutter valve. (2) Pericardial effusion Chronic I31.3 - PERICARDIAL EFFUSION (NONINFLAMMATORY) Comment/Plan: Patient has a known history of pericardial effusion, likely chronic. I discussed the situation with Dr. Mandeep Sherman of Cardiology, who has agreed to continue seeing the patient in consultation. Patient had an echocardiogram interpreted by Dr. Sherman, that shows a moderate pericardial effusion, very chronic appearing. Etiology is unclear & no evidence of tamponade. She has multiple problems that will need focused upon in the near future. Compliance has been an issue in the past. In the long-term, she may benefit from pericardial window. (3) Tricuspid regurgitation Chronic I07.1 - RHEUMATIC TRICUSPID INSUFFICIENCY Qualifiers: Cardiac valve disease etiology: nonrheumatic Qualified Code(s): I36.1 - Nonrheumatic tricuspid (valve) insufficiency Comment/Plan: Severe tricuspid and moderate pulmonary valvular insufficiency. (4) Hepatitis C Chronic B19.20 - UNSPECIFIED VIRAL HEPATITIS C WITHOUT HEPATIC COMA Qualifiers: Viral hepatitis chronicity: chronic Hepatic coma status: H Comment/Plan: See transaminitis above. (5) Intravenous drug abuse Chronic F19.10 - OTHER PSYCHOACTIVE SUBSTANCE ABUSE, UNCOMPLICATED Comment/ Plan: Patient claims to be clean for the last several months, but she does have methamphetamines in her system today. I informed her in no uncertain terms that I am worried about her life expectancy if she continues to use. (6) Pulmonary arterial hypertension Chronic I27.2 - OTHER SECONDARY PULMONARY HYPERTENSION Comment/Plan: Severe pulmonary hypertension with PASP of 72 mm Hg. Patient was previously advised to follow up with Pulmonary hypertension Clinic at [facility]. She certainly will need follow-up at a tertiary care center. Case Care Discussed with: Patient, Nursing Staff, Resource Management Education/Counseling Given To: Patient, Significant Other Education/Counseling Given Regarding: Diagnosis, Treatment Total Time: 41 min Critical Care: No Code: 09088 (12+)
[2016-07-27] MEDS: PROBIOTIC BLEND TAB PO SCH (17:14)
[2016-07-27] MEDS: IBUPROFEN 600 MG TAB PO PRN (17:14)
[2016-07-27] MEDS: LEVOFLOXACIN 750 MG TAB PO SCH (17:14)
[2016-07-27] MEDS: MUPIROCIN 2% OINT 22 GM TUBE NAS SCH ×2 (17:15→21:23)
[2016-07-27] MEDS: CHLORHEXIDINE (HIBICLENS) 4 OZ BOTTLE TOP SCH (21:42)
[2016-07-28] MEDS: PIPERACILLIN AND TAZOBACTAM 4.5 GM in D5W 100 ML IV SCH ×5 (00:19→23:11)
[2016-07-28 03:53] LABS: MPV 10.6 fL (7.4-10.4)
[2016-07-28 04:21] LABS: BLOOD UREA NITROGEN 13 MG/DL (7-17)
[2016-07-28 04:36] LABS: CALCIUM 8.6 MG/DL (8.4-10.2); CALCULATED OSMOLALITY 259 MOs/Kg (270-290); CHLORIDE 97 mEq/L (98-107); GLUCOSE 85 MG/DL (70-99); SODIUM LEVEL 135 mEq/L (137-146)
[2016-07-28 04:37] LABS: CALC CORRECTED 9.9 MG/DL (8.4-10.2)
[2016-07-28] MEDS: METHADONE 10 MG TAB PO SCH (09:02)
[2016-07-28] MEDS: MUPIROCIN 2% OINT 22 GM TUBE NAS SCH ×2 (09:03→21:25)
[2016-07-28] MEDS: ACETAMINOPHEN 325 MG/TAB TABLET PO PRN (09:08)
--- NOTE | 2016-07-28 09:57 | PCM.CARD ---
- Subjective Reason for visit: Follow-up pulmonary hypertension, Feels significantly better no pain. Mild shortness of breath. Vital Signs: Last Vital Signs Temp 96.6 F L 07/28/16 07:44 Pulse 110 07/28/16 07:44 Resp 17 07/28/16 07:44 BP 72/40 L 07/28/16 07:44 Pulse Ox 98 07/28/16 07:44 PE: General Appearance: Well developed. Well nourished. In no acute distress. Lungs: Chest was not overinflated. Few rales in the upper right side. Poor air entry. Cardiovascular: Jugular Venous Distention: JVD mildly increased bilaterally. Heart Rate And Rhythm: Normal. Heart Sounds: Normal. Murmurs: No murmurs were heard. Carotid Arteries: Carotid pulses were normal. No bruit in the carotid artery. Edema: Not present. Lower extremities pulses normal (including femoral popliteal and dorsalis pedis) . Musculoskeletal System: General/bilateral: No cyanosis of the fingers. Neurological: Oriented to time, place, and person. Nails: No clubbing of the fingernails. Lab/DI Results Reviewed: Laboratory Results - last 24 hr 07/28/16 07/28/16 02:50 02:50 WBC 15.8 H RBC 4.14 L Hgb 12.0 Hct 36.7 MCV 89 MCH 28.9 MCHC 32.6 L RDW 15.4 H Plt Count 150 MPV 10.6 H Sodium 135 L Potassium 4.3 Chloride 97 L Carbon Dioxide 30 Anion Gap 12 BUN 13 Creatinine 0.70 Estimated GFR (MDRD) > 60 Glucose 85 Calculated Osmolality 259 L Calcium 8.6 Corrected Calcium 9.9 Total Bilirubin 1.2 AST 54 H ALT 82 H Alkaline Phosphatase 278 H Total Protein 6.0 L Albumin 2.7 L - Assessment/Plan (1) Pneumonia Acute J18.9 - PNEUMONIA, UNSPECIFIED ORGANISM due to unspecified organism A bilateral lower lobe of lung J18.9 - Pneumonia, unspecified organism Comment/Plan: Treated with antibiotic and oxygen support aspirin time Medicine team. (2) Pericardial effusion Chronic I31.3 - PERICARDIAL EFFUSION (NONINFLAMMATORY) Present on Admission: Yes Comment/Plan: Moderate but no evidence of tamponade. Will continue present management. (3) Hepatitis C Chronic B19.20 - UNSPECIFIED VIRAL HEPATITIS C WITHOUT HEPATIC COMA chronic H Comment/Plan: Noted most likely related to IV drug abuse. (4) Pulmonary arterial hypertension Chronic I27.2 - OTHER SECONDARY PULMONARY HYPERTENSION Present on Admission: Yes Comment/Plan: She will required outpatient assessment the her most likely referral to tertiary care center for multi disciplinary approach. However for she need to demonstrate her willingness to stop using IV drugs.
[2016-07-28] MEDS: PROBIOTIC BLEND TAB PO SCH ×2 (11:40→17:18)
[2016-07-28] MEDS: POTASSIUM CHLORIDE 20 MEQ TAB PO SCH (11:40)
[2016-07-28] MEDS: THIAMINE 100 MG TAB PO SCH (11:40)
--- NOTE | 2016-07-28 16:09 | GENMEDPROG ---
Chief Complaint: less sob today Notes Reviewed: Yes Events from last night noted and discussed with Clinical Staff Currently: Reports: Cough, Wheezing, ALBRIGHT, SOB DVT Prophylaxis: Yes - Physical Examination Vital Signs and I&O: Last Vital Signs Temp 98.2 F 07/28/16 15:42 Pulse 119 07/28/16 15:42 Resp 18 07/28/16 15:42 BP 95/63 L 07/28/16 15:42 Pulse Ox 95 07/28/16 15:42 Oxygen Pulse Oxygen Saturation 95 O2 Device Nasal Cannula Oxygen Flow Rate 3 Fraction of Inspired Oxygen ( FIO2) Intake & Output 07/25/16 07/26/16 07/27/16 07/28/16 23:59 23:59 23:59 23:59 Intake Total 915 1994 2012 131 Output Total 800 1600 1325 400 Balance 115 395 688 919 Patient's weight 50.666 kg 50.972 kg 50.848 kg 50.349 kg General: Alert, Oriented x3, No acute distress, Well appearing, Well nourished HEENT: Normal (Normocephalic, atraumatic;EOMI.Sclera white, Nares patent, without discharge or bleeding. No oropharyngeal lesions or erythema. Mucous membranes are dry.) Neck: Non-tender, Full range of motion, Normal Trachea alignment, Normal inspection (No cervical lymphadenopathy. No supraclavicular lymphadenopathy.), No Masses palpable, Supple Lymphatics: Normal (No lymph node swelling or pain.) Respiratory: Normal - CTA Cardiovascular: Regular rate and rhythm (No bradycardia or tachycardia), Normal S1, Normal S2, Murmurs (2/6 hsm), Good Pedal Pulses (DP pulses 2+ bilaterally) GI: Normal bowel sounds (normal active sounds), Soft (non-distended), Non tender , No hepatospenomegaly, No masses Extremities/Musculoskeletal: Normal pulses (DP pulses 2+ bilaterally) Skin: Warm,Dry and Intact, No rashes, No significant lesion Neurological: Strength at 5/5 X4 ext (Motor 5/5 throughout.), Normal tone, Cranial nerves 3-12 NL ( 2-12 grossly intact.) Psych/Mental Status: Appropriate, Normal Affect Lab/DI/Studies Reviewed: 07/28/16 02:50 07/28/16 02:50 Laboratory Results - last 24 hr 07/28/16 07/28/16 02:50 02:50 WBC 15.8 H RBC 4.14 L Hgb 12.0 Hct 36.7 MCV 89 MCH 28.9 MCHC 32.6 L RDW 15.4 H Plt Count 150 MPV 10.6 H Sodium 135 L Potassium 4.3 Chloride 97 L Carbon Dioxide 30 Anion Gap 12 BUN 13 Creatinine 0.70 Estimated GFR (MDRD) > 60 Glucose 85 Calculated Osmolality 259 L Calcium 8.6 Corrected Calcium 9.9 Total Bilirubin 1.2 AST 54 H ALT 82 H Alkaline Phosphatase 278 H Total Protein 6.0 L Albumin 2.7 L - Assessment (1) Pneumonia Acute J18.9 - PNEUMONIA, UNSPECIFIED ORGANISM Qualifiers: Pneumonia type: due to unspecified organism Aspiration pneumonia type: A Laterality: bilateral Lung location: lower lobe of lung Qualified Code(s): J18.9 - Pneumonia, unspecified organism Comment/Plan: This is a community-acquired pneumonia, but will cover broadly including MRSA due to the patient's history of IV drug abuse. Treat empirically today with IV Zosyn, levaquin, and vancomycin. Will obtain sputum and blood cultures. Respiratory therapy has been consulted, will keep supplemental oxygen will be provided as needed, as well as incentive spirometry and flutter valve. (2) Pericardial effusion Chronic I31.3 - PERICARDIAL EFFUSION (NONINFLAMMATORY) Comment/Plan: Patient has a known history of pericardial effusion, likely chronic. I discussed the situation with Dr. Mandeep Sherman of Cardiology, who has agreed to continue seeing the patient in consultation. Patient had an echocardiogram interpreted by Dr. Sherman, that shows a moderate pericardial effusion, very chronic appearing. Etiology is unclear & no evidence of tamponade. She has multiple problems that will need focused upon in the near future. Compliance has been an issue in the past. In the long-term, she may benefit from pericardial window. (3) Tricuspid regurgitation Chronic I07.1 - RHEUMATIC TRICUSPID INSUFFICIENCY Qualifiers: Cardiac valve disease etiology: nonrheumatic Qualified Code(s): I36.1 - Nonrheumatic tricuspid (valve) insufficiency Comment/Plan: Severe tricuspid and moderate pulmonary valvular insufficiency. (4) Hepatitis C Chronic B19.20 - UNSPECIFIED VIRAL HEPATITIS C WITHOUT HEPATIC COMA Qualifiers: Viral hepatitis chronicity: chronic Hepatic coma status: H Comment/Plan: See transaminitis above. (5) Intravenous drug abuse Chronic F19.10 - OTHER PSYCHOACTIVE SUBSTANCE ABUSE, UNCOMPLICATED Comment/ Plan: Patient claims to be clean for the last several months, but she does have methamphetamines in her system today. I informed her in no uncertain terms that I am worried about her life expectancy if she continues to use. (6) Pulmonary arterial hypertension Chronic I27.2 - OTHER SECONDARY PULMONARY HYPERTENSION Comment/Plan: Severe pulmonary hypertension with PASP of 72 mm Hg. Patient was previously advised to follow up with Pulmonary hypertension Clinic at [facility]. She certainly will need follow-up at a tertiary care center. Case Care Discussed with: Patient, Nursing Staff, Resource Management Education/Counseling Given To: Patient Education/Counseling Given Regarding: Diagnosis, Treatment Total Time: 36 min Critical Care: No Code: 90038 (12+)
[2016-07-28] MEDS: LEVOFLOXACIN 750 MG TAB PO SCH (17:18)
[2016-07-28] MEDS: ENOXAPARIN 40 MG/0.4 ML PFS SQ SCH ×2 (17:18→17:20)
[2016-07-28] MEDS: CHLORHEXIDINE (HIBICLENS) 4 OZ BOTTLE TOP SCH (21:26)
[2016-07-28] MEDS ORDERED: METHADONE 10 MG TAB PO SCH (23:00)
[2016-07-29] MEDS: PIPERACILLIN AND TAZOBACTAM 4.5 GM in D5W 100 ML IV SCH ×4 (05:14→23:03)
[2016-07-29 05:33] LABS: MPV 9.8 fL (7.4-10.4)
[2016-07-29 05:43] LABS: BLOOD UREA NITROGEN 8 MG/DL (7-17); CALC CORRECTED 9.5 MG/DL (8.4-10.2); CALCIUM 8.6 MG/DL (8.4-10.2); CALCULATED OSMOLALITY 261 MOs/Kg (270-290); CHLORIDE 100 mEq/L (98-107); GLUCOSE 119 MG/DL (70-99); SODIUM LEVEL 136 mEq/L (137-146); TOTAL PROTEIN 6.5 G/DL (6.3-8.2)
--- NOTE | 2016-07-29 08:41 | DIRPT ---
CLINICAL DATA: Patient awakened 4 days ago with vomiting and chest and back pain and has had difficulty breathing since this time. Known large pericardial effusion demonstrated on CT scan of July 25, 2016 EXAM: CHEST 2 VIEW COMPARISON: Chest x-ray and chest x-ray dated July 25, 2016 FINDINGS: The cardiopericardial silhouette remains enlarged. The pulmonary vascularity is engorged. The pulmonary interstitial markings have increased bilaterally. The left hemidiaphragm remains obscured. A small right pleural effusion has developed. The bony thorax is unremarkable. IMPRESSION: 1. Enlargement of the cardiopericardial silhouette consistent with known pericardial effusion. However, interval development of pulmonary vascular congestion and pulmonary interstitial edema is noted and is consistent with congestive heart failure. There are bilateral pleural effusions greater on the left than on the right. 2. No definite pneumonia but certainly infiltrates could be obscured in the left lower lobe due to overlying densities. Electronically Signed By: Terrell Neely M.D. On: 07/29/2016 08:39
[2016-07-29] MEDS: METHADONE 10 MG TAB PO SCH (10:18)
[2016-07-29] MEDS: PROBIOTIC BLEND TAB PO SCH ×2 (10:19→18:31)
[2016-07-29] MEDS: MUPIROCIN 2% OINT 22 GM TUBE NAS SCH ×2 (10:20→22:10)
--- NOTE | 2016-07-29 10:30 | PCM.CARD ---
- Subjective Reason for visit: Follow-up pulmonary hypertension Feeling better but still some cough and shortness of breath. Vital Signs: Last Vital Signs Temp 98.8 F 07/29/16 07:14 Pulse 111 07/29/16 07:14 Resp 16 07/29/16 07:14 BP 87/59 L 07/29/16 07:14 Pulse Ox 93 07/29/16 08:00 PE: General Appearance: Well developed. Well nourished. In no acute distress. Lungs: Chest was not overinflated. Poor air entry bilaterally specially both bases. Cardiovascular: Jugular Venous Distention: JVD is mildly increased. Heart Rate And Rhythm: Normal. Heart Sounds: Normal. Murmurs: No murmurs were heard. Carotid Arteries: Carotid pulses were normal. No bruit in the carotid artery. Edema: Not present. Lower extremities pulses normal (including femoral popliteal and dorsalis pedis) . Musculoskeletal System: General/bilateral: No cyanosis of the fingers. Neurological: Oriented to time, place, and person. Nails: No clubbing of the fingernails. Lab/DI Results Reviewed: Laboratory Results - last 24 hr 07/28/16 07/29/16 07/29/16 23:05 05:20 05:20 WBC 16.4 H RBC 4.15 L Hgb 11.9 L Hct 36.7 MCV 88 MCH 28.7 MCHC 32.5 L RDW 15.3 H Plt Count 200 MPV 9.8 Sodium 136 L Potassium 4.2 Chloride 100 Carbon Dioxide 26 Anion Gap 14 BUN 8 Creatinine 0.60 Estimated GFR (MDRD) > 60 Glucose 119 H Calculated Osmolality 261 L Calcium 8.6 Corrected Calcium 9.5 Total Bilirubin 1.1 AST 37 H ALT 73 H Alkaline Phosphatase 319 H Total Protein 6.5 Albumin 3.1 L Vancomycin Trough 14.2 - Assessment/Plan (1) Pneumonia Acute J18.9 - PNEUMONIA, UNSPECIFIED ORGANISM due to unspecified organism A bilateral lower lobe of lung J18.9 - Pneumonia, unspecified organism Comment/Plan: Treated with multiple antibiotics. Oxygen support. Improving. (2) Pericardial effusion Chronic I31.3 - PERICARDIAL EFFUSION (NONINFLAMMATORY) Present on Admission: Yes Comment/Plan: Noted, no evidence of tamponade. (3) Hepatitis C Chronic B19.20 - UNSPECIFIED VIRAL HEPATITIS C WITHOUT HEPATIC COMA chronic H Comment/Plan: Noted (4) Pulmonary arterial hypertension Chronic I27.2 - OTHER SECONDARY PULMONARY HYPERTENSION Present on Admission: Yes Comment/Plan: Obviously a problem. She will need to see a security management specialist after discharge.
[2016-07-29] MEDS: POTASSIUM CHLORIDE 20 MEQ TAB PO SCH (12:40)
[2016-07-29] MEDS: THIAMINE 100 MG TAB PO SCH (12:40)
[2016-07-29] MEDS ORDERED: FUROSEMIDE 40 MG/4 ML VIAL IV ONE (15:11)
[2016-07-29] MEDS: LEVOFLOXACIN 750 MG TAB PO SCH (18:31)
[2016-07-29] MEDS: NICOTINE 21 MG PATCH TOP SCH (18:31)
[2016-07-29] MEDS: ENOXAPARIN 40 MG/0.4 ML PFS SQ SCH (18:33)
[2016-07-29] MEDS: CHLORHEXIDINE (HIBICLENS) 4 OZ BOTTLE TOP SCH (22:11)
[2016-07-29] MEDS: TRAZODONE 100 MG TAB PO PRN (23:03)
--- NOTE | 2016-07-29 23:23 | GENMEDPROG ---
Chief Complaint: Feeling better with less shortness breath Notes Reviewed: Yes Events from last night noted and discussed with Clinical Staff Current Medication List: Reviewed Currently: Reports: Cough, Wheezing, ALBRIGHT, SOB DVT Prophylaxis: Yes - Physical Examination Vital Signs and I&O: Last Vital Signs Temp 99.5 F 07/29/16 20:00 Pulse 115 07/29/16 22:00 Resp 18 07/29/16 20:00 BP 90/56 L 07/29/16 20:00 Pulse Ox 94 07/29/16 20:00 Oxygen Pulse Oxygen Saturation 94 O2 Device Nasal Cannula Oxygen Flow Rate 2 Fraction of Inspired Oxygen ( FIO2) Intake & Output 07/26/16 07/27/16 07/28/16 07/29/16 23:59 23:59 23:59 23:59 Intake Total 1994 2012 1687 1602 Output Total 1599 1325 1750 2950 Balance 395 243 -59 -4921 Patient's weight 50.972 kg 50.848 kg 50.349 kg General: Alert, Oriented x3, No acute distress, Well appearing, Well nourished HEENT: Normal (Normocephalic, atraumatic;EOMI.Sclera white, Nares patent, without discharge or bleeding. No oropharyngeal lesions or erythema. Mucous membranes are dry.) Neck: Non-tender, Full range of motion, Normal Trachea alignment, Normal inspection (No cervical lymphadenopathy. No supraclavicular lymphadenopathy.), No Masses palpable, Supple Lymphatics: Normal (No lymph node swelling or pain.) Respiratory: Normal - CTA Cardiovascular: Regular rate and rhythm (No bradycardia or tachycardia), Normal S1, Normal S2, Murmurs (2/6 hsm), Good Pedal Pulses (DP pulses 2+ bilaterally) GI: Normal bowel sounds (normal active sounds), Soft (non-distended), Non tender , No hepatospenomegaly, No masses Extremities/Musculoskeletal: Normal pulses (DP pulses 2+ bilaterally) Skin: Warm,Dry and Intact, No rashes, No significant lesion Neurological: Strength at 5/5 X4 ext (Motor 5/5 throughout.), Normal tone, Cranial nerves 3-12 NL ( 2-12 grossly intact.) Psych/Mental Status: Appropriate, Normal Affect Lab/DI/Studies Reviewed: 07/29/16 05:20 07/29/16 05:20 Laboratory Results - last 24 hr 07/28/16 07/29/16 07/29/16 23:05 05:20 05:20 WBC 16.4 H RBC 4.15 L Hgb 11.9 L Hct 36.7 MCV 88 MCH 28.7 MCHC 32.5 L RDW 15.3 H Plt Count 200 MPV 9.8 Sodium 136 L Potassium 4.2 Chloride 100 Carbon Dioxide 26 Anion Gap 14 BUN 8 Creatinine 0.60 Estimated GFR (MDRD) > 60 Glucose 119 H Calculated Osmolality 261 L Calcium 8.6 Corrected Calcium 9.5 Total Bilirubin 1.1 AST 37 H ALT 73 H Alkaline Phosphatase 319 H Total Protein 6.5 Albumin 3.1 L Vancomycin Trough 14.2 - Assessment (1) Pneumonia Acute J18.9 - PNEUMONIA, UNSPECIFIED ORGANISM Qualifiers: Pneumonia type: due to unspecified organism Aspiration pneumonia type: A Laterality: bilateral Lung location: lower lobe of lung Qualified Code(s): J18.9 - Pneumonia, unspecified organism Comment/Plan: This is a community-acquired pneumonia, but will cover broadly including MRSA due to the patient's history of IV drug abuse. Treat empirically today with IV Zosyn, levaquin, and vancomycin. Will obtain sputum and blood cultures. Respiratory therapy has been consulted, will keep supplemental oxygen will be provided as needed, as well as incentive spirometry and flutter valve. (2) Pericardial effusion Chronic I31.3 - PERICARDIAL EFFUSION (NONINFLAMMATORY) Comment/Plan: Patient has a known history of pericardial effusion, likely chronic. I discussed the situation with Dr. Mandeep Sherman of Cardiology, who has agreed to continue seeing the patient in consultation. Patient had an echocardiogram interpreted by Dr. Sherman, that shows a moderate pericardial effusion, very chronic appearing. Etiology is unclear & no evidence of tamponade. She has multiple problems that will need focused upon in the near future. Compliance has been an issue in the past. In the long-term, she may benefit from pericardial window. (3) Tricuspid regurgitation Chronic I07.1 - RHEUMATIC TRICUSPID INSUFFICIENCY Qualifiers: Cardiac valve disease etiology: nonrheumatic Qualified Code(s): I36.1 - Nonrheumatic tricuspid (valve) insufficiency Comment/Plan: Severe tricuspid and moderate pulmonary valvular insufficiency. (4) Hepatitis C Chronic B19.20 - UNSPECIFIED VIRAL HEPATITIS C WITHOUT HEPATIC COMA Qualifiers: Viral hepatitis chronicity: chronic Hepatic coma status: H Comment/Plan: See transaminitis above. (5) Intravenous drug abuse Chronic F19.10 - OTHER PSYCHOACTIVE SUBSTANCE ABUSE, UNCOMPLICATED Comment/ Plan: Patient claims to be clean for the last several months, but she does have methamphetamines in her system today. I informed her in no uncertain terms that I am worried about her life expectancy if she continues to use. (6) Pulmonary arterial hypertension Chronic I27.2 - OTHER SECONDARY PULMONARY HYPERTENSION Comment/Plan: Severe pulmonary hypertension with PASP of 72 mm Hg. Patient was previously advised to follow up with Pulmonary hypertension Clinic at [facility]. She certainly will need follow-up at a tertiary care center. Case Care Discussed with: Patient, Nursing Staff, Resource Management Education/Counseling Given To: Patient Education/Counseling Given Regarding: Diagnosis Total Time: 38 min Critical Care: No Code: 81320 (12+)
[2016-07-30] MEDS: PIPERACILLIN AND TAZOBACTAM 4.5 GM in D5W 100 ML IV SCH ×3 (05:08→18:17)
[2016-07-30 06:07] LABS: MPV 9.3 fL (7.4-10.4)
[2016-07-30 06:13] LABS: BLOOD UREA NITROGEN 6 MG/DL (7-17); CALC CORRECTED 9.6 MG/DL (8.4-10.2); CALCIUM 8.4 MG/DL (8.4-10.2); CALCULATED OSMOLALITY 258 MOs/Kg (270-290); CHLORIDE 97 mEq/L (98-107); GLUCOSE 107 MG/DL (70-99); SODIUM LEVEL 135 mEq/L (137-146); TOTAL PROTEIN 6.4 G/DL (6.3-8.2)
[2016-07-30] MEDS: PROBIOTIC BLEND TAB PO SCH ×2 (08:36→18:17)
[2016-07-30] MEDS: THIAMINE 100 MG TAB PO SCH (08:36)
[2016-07-30] MEDS: MUPIROCIN 2% OINT 22 GM TUBE NAS SCH ×2 (08:37→19:44)
--- NOTE | 2016-07-30 10:12 | PCM.CARD ---
- Subjective Reason for visit: Follow up on pulmonary hypertension Doing better, wants to go home. Vital Signs: Last Vital Signs Temp 98.4 F 07/30/16 08:30 Pulse 110 07/30/16 09:54 Resp 18 07/30/16 08:30 BP 92/60 L 07/30/16 08:30 Pulse Ox 95 07/30/16 09:41 PE: General Appearance: Well developed. Well nourished. In no acute distress. Lungs: Chest was not overinflated. Clear to auscultation. Poor entry especially the right base. Cardiovascular: Jugular Venous Distention: JVD not increased. Heart Rate And Rhythm: Normal. Heart Sounds: Normal. Murmurs: No murmurs were heard. Carotid Arteries: Carotid pulses were normal. No bruit in the carotid artery. Edema: Not present. Lower extremities pulses normal (including femoral popliteal and dorsalis pedis) . Musculoskeletal System: General/bilateral: No cyanosis of the fingers. Neurological: Oriented to time, place, and person. Nails: No clubbing of the fingernails. Lab/DI Results Reviewed: Laboratory Results - last 24 hr 07/30/16 07/30/16 05:45 05:45 WBC 15.9 H RBC 3.86 L Hgb 11.1 L Hct 33.7 L MCV 87 MCH 28.7 MCHC 32.9 L RDW 15.5 H Plt Count 215 MPV 9.3 Sodium 135 L Potassium 3.7 Chloride 97 L Carbon Dioxide 29 Anion Gap 13 BUN 6 L Creatinine 0.60 Estimated GFR (MDRD) > 60 Glucose 107 H Calculated Osmolality 258 L Calcium 8.4 Corrected Calcium 9.6 Total Bilirubin 1.2 AST 30 ALT 55 H Alkaline Phosphatase 265 H Total Protein 6.4 Albumin 2.8 L - Assessment/Plan (1) Pneumonia Acute J18.9 - PNEUMONIA, UNSPECIFIED ORGANISM due to unspecified organism A bilateral lower lobe of lung J18.9 - Pneumonia, unspecified organism Comment/Plan: Improving, treated with antibiotic and oxygen support. (2) Pericardial effusion Chronic I31.3 - PERICARDIAL EFFUSION (NONINFLAMMATORY) Present on Admission: Yes Comment/Plan: Chronic noted most likely related to cor pulmonale. No evidence of tamponade. (3) Hepatitis C Chronic B19.20 - UNSPECIFIED VIRAL HEPATITIS C WITHOUT HEPATIC COMA chronic H Comment/Plan: Noted. Management as an outpatient. (4) Pulmonary arterial hypertension Chronic I27.2 - OTHER SECONDARY PULMONARY HYPERTENSION Present on Admission: Yes Comment/Plan: She will required referred to tertiary care center and Pulmonary hypertension Clinic. However so we would like to see improvement with her drug addiction. - Plan Overall she is doing fine from cardiac standpoint of view. I will sign off. Call if situation changed.
--- NOTE | 2016-07-30 10:14 | GENMEDPROG ---
Chief Complaint: sob better less cough Notes Reviewed: Yes Events from last night noted and discussed with Clinical Staff Current Medication List: Reviewed Currently: Reports: Cough, Wheezing, ALBRIGHT, SOB DVT Prophylaxis: Yes - Physical Examination Vital Signs and I&O: Last Vital Signs Temp 98.4 F 07/30/16 08:30 Pulse 110 07/30/16 09:54 Resp 18 07/30/16 08:30 BP 92/60 L 07/30/16 08:30 Pulse Ox 95 07/30/16 09:41 Oxygen Pulse Oxygen Saturation 95 O2 Device Nasal Cannula Oxygen Flow Rate 2 Fraction of Inspired Oxygen ( FIO2) Intake & Output 07/27/16 07/28/16 07/29/16 07/30/16 23:59 23:59 23:59 23:59 Intake Total 20128 1602 598 Output Total 1324 1750 3100 300 Balance 977 -38 -9647 746 Patient's weight 50.848 kg 50.349 kg 51.347 kg 51.8 kg General: Alert, Oriented x3, No acute distress, Well appearing, Well nourished HEENT: Normal (Normocephalic, atraumatic;EOMI.Sclera white, Nares patent, without discharge or bleeding. No oropharyngeal lesions or erythema. Mucous membranes are dry.) Neck: Non-tender, Full range of motion, Normal Trachea alignment, Normal inspection (No cervical lymphadenopathy. No supraclavicular lymphadenopathy.), No Masses palpable, Supple Lymphatics: Normal (No lymph node swelling or pain.) Respiratory: Normal - CTA Cardiovascular: Regular rate and rhythm (No bradycardia or tachycardia), Normal S1, Normal S2, Murmurs (2/6 hsm), Good Pedal Pulses (DP pulses 2+ bilaterally) GI: Normal bowel sounds (normal active sounds), Soft (non-distended), Non tender , No hepatospenomegaly, No masses Extremities/Musculoskeletal: Normal pulses (DP pulses 2+ bilaterally) Skin: Warm,Dry and Intact, No rashes, No significant lesion Neurological: Strength at 5/5 X4 ext (Motor 5/5 throughout.), Normal tone, Cranial nerves 3-12 NL ( 2-12 grossly intact.) Psych/Mental Status: Appropriate, Normal Affect - Assessment (1) Pneumonia Acute J18.9 - PNEUMONIA, UNSPECIFIED ORGANISM Qualifiers: Pneumonia type: due to unspecified organism Aspiration pneumonia type: A Laterality: bilateral Lung location: lower lobe of lung Qualified Code(s): J18.9 - Pneumonia, unspecified organism Comment/Plan: This is a community-acquired pneumonia, but will cover broadly including MRSA due to the patient's history of IV drug abuse. Treat empirically today with IV Zosyn, levaquin, and vancomycin. Will obtain sputum and blood cultures. Respiratory therapy has been consulted, will keep supplemental oxygen will be provided as needed, as well as incentive spirometry and flutter valve. prob d/c thursday. (2) Pericardial effusion Chronic I31.3 - PERICARDIAL EFFUSION (NONINFLAMMATORY) Comment/Plan: Patient has a known history of pericardial effusion, likely chronic. I discussed the situation with Dr. Mandeep Sherman of Cardiology, who has agreed to continue seeing the patient in consultation. Patient had an echocardiogram interpreted by Dr. Sherman, that shows a moderate pericardial effusion, very chronic appearing. Etiology is unclear & no evidence of tamponade. She has multiple problems that will need focused upon in the near future. Compliance has been an issue in the past. In the long-term, she may benefit from pericardial window. (3) Tricuspid regurgitation Chronic I07.1 - RHEUMATIC TRICUSPID INSUFFICIENCY Qualifiers: Cardiac valve disease etiology: nonrheumatic Qualified Code(s): I36.1 - Nonrheumatic tricuspid (valve) insufficiency Comment/Plan: Severe tricuspid and moderate pulmonary valvular insufficiency. (4) Hepatitis C Chronic B19.20 - UNSPECIFIED VIRAL HEPATITIS C WITHOUT HEPATIC COMA Qualifiers: Viral hepatitis chronicity: chronic Hepatic coma status: H Comment/Plan: See transaminitis above. (5) Intravenous drug abuse Chronic F19.10 - OTHER PSYCHOACTIVE SUBSTANCE ABUSE, UNCOMPLICATED Comment/ Plan: Patient claims to be clean for the last several months, but she does have methamphetamines in her system today. I informed her in no uncertain terms that I am worried about her life expectancy if she continues to use. (6) Pulmonary arterial hypertension Chronic I27.2 - OTHER SECONDARY PULMONARY HYPERTENSION Comment/Plan: Severe pulmonary hypertension with PASP of 72 mm Hg. Patient was previously advised to follow up with Pulmonary hypertension Clinic at [facility]. She certainly will need follow-up at a tertiary care center. Disposition Plan: d/c thursday Case Care Discussed with: Patient, Nursing Staff, Resource Management Education/Counseling Given To: Patient Education/Counseling Given Regarding: Diagnosis, Treatment Total Time: 39 min Critical Care: No Code: 58277 (12+)
[2016-07-30] MEDS: METHADONE 10 MG TAB PO SCH (11:02)
[2016-07-30] MEDS: POTASSIUM CHLORIDE 20 MEQ TAB PO SCH (11:04)
[2016-07-30] MEDS: LEVOFLOXACIN 750 MG TAB PO SCH (18:17)
[2016-07-30] MEDS: NICOTINE 21 MG PATCH TOP SCH (18:17)
[2016-07-30] MEDS: ENOXAPARIN 40 MG/0.4 ML PFS SQ SCH (18:18)
[2016-07-30] MEDS: TRAZODONE 100 MG TAB PO PRN (19:44)
[2016-07-30] MEDS: CHLORHEXIDINE (HIBICLENS) 4 OZ BOTTLE TOP SCH (21:54)
[2016-07-31] MEDS: PIPERACILLIN AND TAZOBACTAM 4.5 GM in D5W 100 ML IV SCH ×5 (00:36→23:23)
[2016-07-31 06:02] LABS: MPV 9.8 fL (7.4-10.4)
[2016-07-31] MEDS: METHADONE 10 MG TAB PO SCH (08:48)
[2016-07-31] MEDS: MUPIROCIN 2% OINT 22 GM TUBE NAS SCH ×2 (08:49→22:16)
[2016-07-31] MEDS: PROBIOTIC BLEND TAB PO SCH ×2 (11:18→17:05)
[2016-07-31] MEDS: THIAMINE 100 MG TAB PO SCH (11:18)
[2016-07-31] MEDS: POTASSIUM CHLORIDE 20 MEQ TAB PO SCH (11:19)
[2016-07-31] MEDS ORDERED: Medication Special Instructions SCH (14:00)
[2016-07-31] MEDS: PROMETHAZINE 25 MG/ML VIAL IV PRN (17:05)
[2016-07-31] MEDS: LEVOFLOXACIN 750 MG TAB PO SCH (17:05)
--- NOTE | 2016-07-31 17:05 | GENMEDPROG ---
Subjective Note: Patient is ambulating room air O2 sat today was 87%. She clearly is still quite affected by this pneumonia. Notes Reviewed: Yes Events from last night noted and discussed with Clinical Staff Current Medication List: Reviewed Currently: Reports: Cough, Wheezing, ALBRIGHT, SOB DVT Prophylaxis: Yes - Physical Examination Vital Signs and I&O: Last Vital Signs Temp 98.2 F 07/31/16 15:47 Pulse 109 07/31/16 15:47 Resp 18 07/31/16 15:47 BP 98/67 L 07/31/16 15:47 Pulse Ox 93 07/31/16 15:47 Oxygen Pulse Oxygen Saturation 93 O2 Device Nasal Cannula Oxygen Flow Rate 2 Fraction of Inspired Oxygen ( FIO2) Intake & Output 07/28/16 07/29/16 07/30/16 07/31/16 23:59 23:59 23:59 23:59 Intake Total 1688 1602 1644 720 Output Total 1750 3100 2000 1600 Balance -62 -1498 -356 -880 Patient's weight 50.349 kg 51.347 kg 51.8 kg 51.664 kg General: Alert, Oriented x3, No acute distress, Well appearing, Well nourished HEENT: Normal (Normocephalic, atraumatic;EOMI.Sclera white, Nares patent, without discharge or bleeding. No oropharyngeal lesions or erythema. Mucous membranes are dry.) Neck: Non-tender, Full range of motion, Normal Trachea alignment, Normal inspection (No cervical lymphadenopathy. No supraclavicular lymphadenopathy.), No Masses palpable, Supple Lymphatics: Normal (No lymph node swelling or pain.) Respiratory: Normal - CTA Cardiovascular: Regular rate and rhythm (No bradycardia or tachycardia), Normal S1, Normal S2, Murmurs (2/6 hsm), Good Pedal Pulses (DP pulses 2+ bilaterally) GI: Normal bowel sounds (normal active sounds), Soft (non-distended), Non tender , No hepatospenomegaly, No masses Extremities/Musculoskeletal: Normal pulses (DP pulses 2+ bilaterally) Skin: Warm,Dry and Intact, No rashes, No significant lesion Neurological: Strength at 5/5 X4 ext (Motor 5/5 throughout.), Normal tone, Cranial nerves 3-12 NL ( 2-12 grossly intact.) Psych/Mental Status: Appropriate, Normal Affect Lab/DI/Studies Reviewed: Abnormal Lab Results 07/31/16 05:10 WBC 15.4 H RBC 3.78 L Hgb 10.9 L Hct 33.3 L MCHC 32.8 L RDW 15.2 H - Assessment (1) Pneumonia Acute J18.9 - PNEUMONIA, UNSPECIFIED ORGANISM Qualifiers: Pneumonia type: due to unspecified organism Aspiration pneumonia type: A Laterality: bilateral Lung location: lower lobe of lung Qualified Code(s): J18.9 - Pneumonia, unspecified organism Comment/Plan: Patient's O2 sats today were very low. Will need to continue present antibiotic management. I will check MRSA in her nares if she has MRSA in her respiratory tract will need to continue vancomycin otherwise may be able to discontinue it. Will need to have the patient exercise her lungs and see we can get her sats up some. (2) Pericardial effusion Chronic I31.3 - PERICARDIAL EFFUSION (NONINFLAMMATORY) Comment/Plan: Continue to monitor effusion. This is chronic in nature. (3) Tricuspid regurgitation Chronic I07.1 - RHEUMATIC TRICUSPID INSUFFICIENCY Qualifiers: Cardiac valve disease etiology: nonrheumatic Qualified Code(s): I36.1 - Nonrheumatic tricuspid (valve) insufficiency Comment/Plan: Severe tricuspid and moderate pulmonary valvular insufficiency. (4) Hepatitis C Chronic B19.20 - UNSPECIFIED VIRAL HEPATITIS C WITHOUT HEPATIC COMA Qualifiers: Viral hepatitis chronicity: chronic Hepatic coma status: H Comment/Plan: See transaminitis above. Patient has a history of noncompliance. I doubt she would be able to follow-up for treatment. (5) Intravenous drug abuse Chronic F19.10 - OTHER PSYCHOACTIVE SUBSTANCE ABUSE, UNCOMPLICATED Comment/ Plan: Patient claims to be clean for the last several months, but she does have methamphetamines in her system today. I informed her in no uncertain terms that I am worried about her life expectancy if she continues to use. Patient informed that her medical issues are directly related to her drug use. (6) Pulmonary arterial hypertension Chronic I27.2 - OTHER SECONDARY PULMONARY HYPERTENSION Comment/Plan: Severe pulmonary hypertension with PASP of 72 mm Hg. Patient was previously advised to follow up with Pulmonary hypertension Clinic at [facility]. She certainly will need follow-up at a tertiary care center. - Plan Continue supportive care. Case Care Discussed with: Patient, Nursing Staff Education/Counseling Given To: Patient Education/Counseling Given Regarding: Diagnosis, Treatment, Prognosis, Follow Up , Disposition Plan Total Time: 45 minutes Critical Care: No Couseling Time (>50% in counseling/coordination): No
[2016-07-31] MEDS: NICOTINE 21 MG PATCH TOP SCH (17:06)
[2016-07-31] MEDS: ENOXAPARIN 40 MG/0.4 ML PFS SQ SCH (17:06)
[2016-07-31] MEDS: CHLORHEXIDINE (HIBICLENS) 4 OZ BOTTLE TOP SCH (22:16)
[2016-08-01 05:08] VITALS: BMI 23.6
[2016-08-01] MEDS: PIPERACILLIN AND TAZOBACTAM 4.5 GM in D5W 100 ML IV SCH (05:31)
[2016-08-01 06:01] LABS: MPV 9.5 fL (7.4-10.4)
[2016-08-01 06:40] LABS: BLOOD UREA NITROGEN 6 MG/DL (7-17); CALCIUM 8.8 MG/DL (8.4-10.2); CALCULATED OSMOLALITY 260 MOs/Kg (270-290); CHLORIDE 100 mEq/L (98-107); GLUCOSE 96 MG/DL (70-99); SODIUM LEVEL 136 mEq/L (137-146)
--- NOTE | 2016-08-01 08:14 | DIRPT ---
CLINICAL DATA: 26-year-old female with recent vomiting, back pain, shortness of breath. Large pericardial effusion. Initial encounter. EXAM: CHEST 2 VIEW COMPARISON: 07/29/2016 and earlier. FINDINGS: Severe cardiac silhouette enlargement appears stable. Other mediastinal contours are within normal limits. Visualized tracheal air column is within normal limits. Interval decreased pulmonary vascularity. No overt edema. No pneumothorax. Suggestion of small right pleural effusion. Stable retrocardiac atelectasis. No acute osseous abnormality identified. IMPRESSION: 1. Severe cardiac silhouette enlargement related to known large pericardial effusion (see chest CTA 07/25/2016). 2. Resolved interstitial edema. Small right pleural effusion. Electronically Signed By: Suri Parks M.D. On: 08/01/2016 08:12
[2016-08-01] MEDS ORDERED: Pharmacy Review for Metformin - IV Contrast Given SCH (09:00)
--- NOTE | 2016-08-01 09:19 | DIRPT ---
CLINICAL DATA: Shortness of breath and chest pain. EXAM: CT ANGIOGRAPHY CHEST WITH CONTRAST TECHNIQUE: Multidetector CT imaging of the chest was performed using the standard protocol during bolus administration of intravenous contrast. Multiplanar CT image reconstructions and MIPs were obtained to evaluate the vascular anatomy. CONTRAST: 70 cc Isovue 370. COMPARISON: Chest radiograph 08/01/2006 FINDINGS: Mediastinum/Lymph Nodes: The heart is markedly enlarged, with preferential right heart enlargement. There is a large pericardial effusion measuring 3.3 cm at the posterior heart base. This represents a mild increase from the prior CT dated 07/25/2016. There is no evidence of pulmonary embolus, or thoracic dissection. No masses or pathologically enlarged lymph nodes identified. Lungs/Pleura: There is a small left pleural effusion. Bibasilar peribronchovascular linear airspace opacities may represent atelectasis. However, there has been interval development of haziness of the interstitium, with more focal ground-glass opacities in right greater than left upper lobes. Upper abdomen: Partially visualized hepatomegaly. Reflux of contrast to the hepatic veins. Musculoskeletal: No chest wall mass or suspicious bone lesions identified. Review of the MIP images confirms the above findings. IMPRESSION: Interval increase in the size of large pericardial effusion. Cardiomegaly with preferential enlargement of the right heart, and reflux of contrast to the hepatic veins, suggestive of right heart dysfunction. Interval development of interstitial pulmonary edema with superimposed more confluent ground-glass airspace opacities in right greater than left upper lobes, which may represent alveolar pulmonary edema or infectious airspace consolidation. Bibasilar compressive likely segmental atelectasis. Small left pleural effusion. Electronically Signed By: Jesus Little M.D. On: 08/01/2016 09:16
[2016-08-01] MEDS: METHADONE 10 MG TAB PO SCH (09:47)
[2016-08-01] MEDS: MUPIROCIN 2% OINT 22 GM TUBE NAS SCH (09:47)
[2016-08-01] MEDS ORDERED: FUROSEMIDE 40 MG/4 ML VIAL IV ONE (10:01)
[2016-08-01 11:08] VITALS: BP 96/57; TEMP 97.4
--- NOTE | 2016-08-01 11:18 | PCM.DCS92 ---
- Final/Secondary Discharge Diagnosis (1) Pneumonia Acute J18.9 - PNEUMONIA, UNSPECIFIED ORGANISM due to unspecified organism A bilateral lower lobe of lung J18.9 - Pneumonia, unspecified organism Comment: Patient's O2 sats today were very low. Will need to continue present antibiotic management. I will check MRSA in her nares if she has MRSA in her respiratory tract will need to continue vancomycin otherwise may be able to discontinue it. Will need to have the patient exercise her lungs and see we can get her sats up some. (2) Pericardial effusion Chronic I31.3 - PERICARDIAL EFFUSION (NONINFLAMMATORY) Present on Admission: Yes Comment: Continue to monitor effusion. This is chronic in nature. (3) Tricuspid regurgitation Chronic I07.1 - RHEUMATIC TRICUSPID INSUFFICIENCY Present on Admission: Yes nonrheumatic I36.1 - Nonrheumatic tricuspid (valve) insufficiency Comment: Severe tricuspid and moderate pulmonary valvular insufficiency. (4) Hepatitis C Chronic B19.20 - UNSPECIFIED VIRAL HEPATITIS C WITHOUT HEPATIC COMA chronic H Comment: See transaminitis above. Patient has a history of noncompliance. I doubt she would be able to follow-up for treatment. (5) Intravenous drug abuse Chronic F19.10 - OTHER PSYCHOACTIVE SUBSTANCE ABUSE, UNCOMPLICATED Comment: Patient claims to be clean for the last several months, but she does have methamphetamines in her system today. I informed her in no uncertain terms that I am worried about her life expectancy if she continues to use. Patient informed that her medical issues are directly related to her drug use. (6) Pulmonary arterial hypertension Chronic I27.2 - OTHER SECONDARY PULMONARY HYPERTENSION Present on Admission: Yes Comment: Severe pulmonary hypertension with PASP of 72 mm Hg. Patient was previously advised to follow up with Pulmonary hypertension Clinic at [facility]. She certainly will need follow-up at a tertiary care center. Discharge Disposition: Home Discharge Condition: Fair Cognitive Discharge Status: Unimpaired Fuctional Discharge Status: Independent Physician Follow up/Referrals: Luther Carreno MD [Staff Physician] - Two Weeks (pt must keep follow up appt in order to recive karl care she needs) Home Medications / New Prescriptions: New Probiotic Blend [Farida Q] 1 tab PO BIDLS #60 tablet Levofloxacin [Levaquin] 750 mg PO Q24H #3 tablet Nicotine [Nicoderm] 21 mg TOP Q24H #30 pat Continue Potassium Chloride 20 meq PO DAILY #90 tablet.er Methadone HCl 77 mg PO DAILY Thiamine HCl [B-1] 50 mg PO DAILY #100 tablet Carvedilol [Coreg] 3.125 mg PO BID #60 tablet Ferrous Sulfate [Feosol] 325 mg PO TID #100 tablet Furosemide 10 mg PO DAILY #30 tablet Aspirin (Enteric Coated) [Halfprin] 81 mg PO DAILY #100 tab Melatonin/Pyridoxine [Melatonin 3 mg Tablet] 1 tab PO QHS #30 tablet Trazodone HCl 100 mg PO QHS PRN #30 tablet PRN Reason: Sleep Or Insomnia Cyanocobalamin (Vitamin B-12) [Vitamin B-12] 1,000 mcg PO DAILY #100 tablet Discharge Home Medication List Potassium Chloride 20 meq PO DAILY #90 tablet.er 01/17/16 [Rx Confirmed 07/25/16 ] Methadone HCl 77 mg PO DAILY 07/25/16 [History Confirmed 07/25/16] Aspirin (Enteric Coated) [Halfprin] 81 mg PO DAILY #100 tab 08/01/16 [Rx Confirmed 07/25/16] Carvedilol [Coreg] 3.125 mg PO BID #60 tablet 08/01/16 [Rx] Cyanocobalamin (Vitamin B-12) [Vitamin B-12] 1,000 mcg PO DAILY #100 tablet [Rx] Ferrous Sulfate [Feosol] 325 mg PO TID #100 tablet 08/01/16 [Rx] Furosemide 10 mg PO DAILY #30 tablet 08/01/16 [Rx] Levofloxacin [Levaquin] 750 mg PO Q24H #3 tablet 08/01/16 [Rx] Melatonin/Pyridoxine [Melatonin 3 mg Tablet] 1 tab PO QHS #30 tablet 08/01/16 [ Rx] Nicotine [Nicoderm] 21 mg TOP Q24H #30 pat 08/01/16 [Rx] Probiotic Blend [Farida Q] 1 tab PO BIDLS #60 tablet 08/01/16 [Rx] Thiamine HCl [B-1] 50 mg PO DAILY #100 tablet 08/01/16 [Rx] Trazodone HCl 100 mg PO QHS PRN #30 tablet 08/01/16 [Rx] New Discharge Medications (Rx) Aspirin (Enteric Coated) [Halfprin] 81 mg PO DAILY #100 tab 08/01/16 [Rx] Carvedilol [Coreg] 3.125 mg PO BID #60 tablet 08/01/16 [Rx] Cyanocobalamin (Vitamin B-12) [Vitamin B-12] 1,000 mcg PO DAILY #100 tablet [Rx] Ferrous Sulfate [Feosol] 325 mg PO TID #100 tablet 08/01/16 [Rx] Furosemide 10 mg PO DAILY #30 tablet 08/01/16 [Rx] Levofloxacin [Levaquin] 750 mg PO Q24H #3 tablet 08/01/16 [Rx] Melatonin/Pyridoxine [Melatonin 3 mg Tablet] 1 tab PO QHS #30 tablet 08/01/16 [ Rx] Nicotine [Nicoderm] 21 mg TOP Q24H #30 pat 08/01/16 [Rx] Probiotic Blend [Farida Q] 1 tab PO BIDLS #60 tablet 08/01/16 [Rx] Thiamine HCl [B-1] 50 mg PO DAILY #100 tablet 08/01/16 [Rx] Trazodone HCl 100 mg PO QHS PRN #30 tablet 08/01/16 [Rx] O2 Device: Nasal Cannula Oxygen Flow Rate: 2 Oxygen to be used after Discharge: Continuous Diet at Discharge: As Tolerated, Low Salt Activity: As Tolerated, Limited, No Heavy Lifting Call Office For: Worsening Symptoms, Fever over 100.5, Pain Uncontrolled By Meds Discontinue use of:: Alcohol, All Illegal Substances, All Types of Tobacco - DC Summary Notes HPI/Notes: She is a 25-year-old woman with a history of IV drug abuse severe pulmonary artery hypertension right ventricular dilation and dysfunction severe tricuspid regurgitation and chronic pericardial effusion. She is evaluated 1 year ago at [facility] according to her significant other who said she was advised to have valve replacement but has had no follow-up. She presents today which shortness of breath CT of the chest suggested large pericardial effusion. Echo at the bedside shows an effusion that is predominantly posteriorly I would call at moderate and does not have markers of pericardial tamponade. On CT the fluid is not transit date and appears to be chronic I could not define if the pericardium was thickened. There is no stranding. She has findings both right ventricular pressure and volume overload dilated hypokinetic right ventricle severe tricuspid regurgitation and severe pulmonary artery hypertension. She relates shortness of breath even with ADLs and marked exercise intolerance. She has not had syncope. Hospital Course Note:: Discharge summary on patient named JOHNY MCGEE admitted to [facility] on 07/25/16 by Marv Mendez MD. Date of discharge is []. 26-year-old female admitted with large pericardial effusion. She has severe pulmonary hypertension. She received treatment in the hospital with diuresis and treatment for pneumonia improved significantly. She does need outpatient follow-up with Cardiology for continued management her cor pulmonale issues. It was stressed to the patient to keep her follow-up appointment. At this point she has reached maximal benefit of hospitalization. She is stable for discharge home on 2 L of oxygen nasal cannula continuously. Total Time: 45 min Code: 93574 (>30min.) - Physical Exam Vital Signs: Last Vital Signs Temp 97.4 F L 08/01/16 11:05 Pulse 92 08/01/16 11:05 Resp 16 08/01/16 11:05 BP 96/57 L 08/01/16 11:05 Pulse Ox 93 08/01/16 11:05 Oxygen Pulse Oxygen Saturation 93 O2 Device Nasal Cannula Oxygen Flow Rate 2 Fraction of Inspired Oxygen ( FIO2) Constitutional: No apparent distress, Alert Oriented to: Time, Person, Place - HEENT Head: Normal (Marked neck vein distention with a patent jugular reflux to the neck veins are pulsatile. No bruit or thyromegaly) Eye: Normal (EOMI, Sclera white) Oropharynx: Normal (moist) Nose: No Symptoms Reported (without discharge or bleeding) - Respiratory/Cardiovascular Respiratory: Normal - CTA Cardiovascular: Normal (RRR , Normal S1, S2. No murmurs, rubs, or gallops. PMI non-displaced. Carotids: no carotid bruits. No bradycardia or tachycardia. DP pulses 2+ bilaterally.) - GI Palpation: Normal (soft, non distended and nontender) Tenderness: Non tender Perez's Sign: Negative - Musculoskeletal Back: Normal (Non-Tender) Extremities: Normal (normal tone, no cyanosis or edema), Femoral Pulse, Pedal Pulse, Radial Pulse. negative: Calf Tenderness, Clubbing, Cyanosis, Edema, Pedal Edema - Integumentary Skin: Normal (Warm dry no rashes) Lymphatics: Normal (No lymph node swelling or pain.) - Neurologic Memory Impaired: Normal Motor Function: Normal (Motor 5/5 throughout.Normal tone, Pulses 2+ No cyanosis or edema, FROM) Cranial Nerve: Normal (CN II-XII intact sensation, strength 5/5) Cerebellar: Normal Mood Description: Normal Perception: Normal - Other Exam Other Exam Findings: Abnormal Lab Results 08/01/16 08/01/16 08/01/16 05:25 05:25 05:25 WBC 14.8 H RBC 3.72 L Hgb 10.9 L Hct 32.8 L RDW 14.9 H D-Dimer Quant (PE/DVT) 6807 H Sodium 136 L BUN 6 L Calculated Osmolality 260 L
[2016-08-01] MEDS: POTASSIUM CHLORIDE 20 MEQ TAB PO SCH (11:38)
[2016-08-01] MEDS: PROBIOTIC BLEND TAB PO SCH (11:38)
[2016-08-01] MEDS: THIAMINE 100 MG TAB PO SCH (11:38)
[2016-08-01 14:16] VITALS: PULSE 91
== END 2016-08-01 15:35 | disposition home or self-care (01) | DRG 194 ==
LOC: ED 06:42 → PCU 10:55
PROVIDERS: ADMIT Internal Medicine; ATTEND Hospitalist
PROC: 039B3ZZ Drainage of Right Radial Artery, Percutaneous Approach (ICD-10-PCS; principal; 2016-07-25)
DX: J18.1 Lobar pneumonia, unspecified organism (principal); I31.3 Pericardial effusion (noninflammatory); I27.2 Other secondary pulmonary hypertension; N30.00 Acute cystitis without hematuria; I50.9 Heart failure, unspecified; R06.89 Other abnormalities of breathing; B19.20 Unspecified viral hepatitis C without hepatic coma; R74.0 Nonspecific elevation of levels of transaminase and lactic acid dehydrogenase [LDH]; F19.10 Other psychoactive substance abuse, uncomplicated; F15.10 Other stimulant abuse, uncomplicated; Z79.82 Long term (current) use of aspirin; F17.210 Nicotine dependence, cigarettes, uncomplicated; I07.1 Rheumatic tricuspid insufficiency; Z91.19 Patient's noncompliance with other medical treatment and regimen; Z79.899 Other long term (current) drug therapy
CPT/HCPCS: 36415; 36600; 71020; 71275; 80048; 80053; 80202; 80307; 81001; 81025; 82550; 82803; 83690; 83735; 83880; 84484; 85025; 85027; 85379; 86140; 87040; 87641; 93005; 93306; 94640; 96365; 96366; 96375; 98960; 99284; 99406; A9698; G0237; J0456; J0696; J1650; J1940; J2405; J2543; J2550; J3370; J3490; J7060; J7070